=== PATIENT | male | born 1960 | race Caucasian/White ===

== ENCOUNTER 2017-03-22 10:33 | Emergency (ER) | payer OTHER ==
[~2017-03-22] VITALS: Ht 180.3 cm; Wt 93.0 kg
[~2017-03-22 10:33] MED LIST: ACULAR 0.5%5 ML OS; B-1100 MG PO; BYSTOLIC5 M1 PO; CENTRUM SILVER1 TA1 PO; CLARITHROMYCIN500 MG PO; DOXYCYCLINE HY100 MG PO; ERYTHROMYCIN5 MG/GM OPH; HYDROXYZINE HCL25 MG PO; LASIX20 M1 PO; NALTREXONE HCL50 M1; NAPROXEN500 M2 PO; NORCO 325 MG-51 TAB PO; PREDNISONE 20MG20 MG PO; SERTRALINE HCL50 MG; VIBRAMYCIN 100100 MG PO; VITAMIN D250000 UNIT PO
--- NOTE | 2017-03-22 10:53 | ED UPPER/LOWER EXTREMITY COMPL ---
History of Present Illness General Chief Complaint: Lower Extremity Problems Stated Complaint: R LEG NUMBNESS UNABLE TO MOVE TOES,WEAKNESS Source: patient Exam Limitations: no limitations Vital Signs & Intake/Output Vital Signs & Intake/Output ED Intake and Output 03/23 0000 03/22 1200 Intake Total Output Total 200 Balance -200 Output, Urine 200 Patient 205 lb Weight Weight Reported by Patient Measurement Method Allergies Coded Allergies: NO KNOWN ALLERGIES (04/02/16) Reconcile Medications Furosemide (Lasix) 20 MG TABLET 1 TAB PO DAILY edema Gabapentin 100 MG CAPSULE 1 CAP PO TID PRN neuropathy Hydrocodone/Acetaminophen (Hydrocodon-Acetaminoph 7.5-325) 7.5 MG-325 MG TABLET 1 TAB PO Q4 HRS NEEDED PRN PAIN (Reported) Naltrexone HCl (Unknown Strength) TABLET (Unknown Dose) UNKNOWN (Reported) Nebivolol HCl (Bystolic) 5 MG TABLET 1 TAB PO DAILY BP (Reported) Sertraline HCl (Unknown Strength) TABLET (Unknown Dose) UNKNOWN (Reported) Triage Nurses Notes Reviewed? yes Onset: Abrupt Duration: week(s): (34), constant, continues in ED, getting worse Timing: single episode today Severity: mild, moderate Severity Numbers: 6 Pain/Injury Location: Bilateral: Foot. No Modifying Factors: none Associated Symptoms: none HPI: 57-year-old male with a history of hypertension and alcohol abuse presents complaining of numbness and tingling in his bilateral lower extremities for the past 3 or 4 weeks. Patient reports symptoms started initially in the right foot with numbness weakness and tingling in all 5 toes. Symptoms gradually worsened and started in the left foot about 2 weeks ago. Patient does report associated low back pain as any trauma. He saw his primary care doctor for this who ordered blood work patient has not yet completed that. He is also currently seeing a physical therapist to work on his gait. Patient also has an MRI scheduled for April 11 but he feels as though he needs something done sooner. Patient takes hydrocodone for low back pain with improvement. Patient rates the numbness and tingling as a 7 out of 10 that is worse with any type of movement. Patient reports almost daily alcohol abuse. No other associated symptoms. No dysuria, knee pain, hip pain, abdominal pain, saddle paresthesia, bowel or bladder dysfunction, fever, chest pain, or shortness of breath. (JO CAMACHO PA-C) Past History Travel History Traveled to [place] past 21 day No Medical History Any Pertinent Medical History? see below for history Neurological: NONE EENT: NONE Cardiovascular: hypertension Respiratory: NONE Gastrointestinal: NONE Hepatic: NONE Renal: NONE Musculoskeletal: NONE Psychiatric: NONE Endocrine: NONE Blood Disorders: NONE Cancer(s): NONE Other Medical Hx: Psoriasis, alcoholism, hypertension Surgical History Surgical History: knee replacement (RIGHT) Psychosocial History What is your primary language Turkish Family History Hx Contributory? Yes (JO CAMACHO PA-C) Review of Systems Review of Systems Constitutional: Reports: no symptoms. EENTM: Reports: no symptoms. Respiratory: Reports: no symptoms. Cardiovascular: Reports: no symptoms. Gastrointestinal/Abdominal: Reports: no symptoms. Genitourinary: Reports: no symptoms. Musculoskeletal: Reports: see HPI, back pain, muscle stiffness (bilateral lower legs). Skin: Reports: no symptoms. Neurological/Psychological: Reports: see HPI, numbness (bilateral feet), tingling (bilateral feet). Hematologic/Endocrine: Reports: no symptoms. Immunological: Reports: no symptoms. All Other Systems: Reviewed and Negative (JO CAMACHO PA-C) Physical Exam Physical Exam General Appearance: well developed/nourished, no apparent distress, alert, awake , anxious Head: atraumatic, normal appearance Eyes: Bilateral: normal appearance, PERRL, EOMI. Ears, Nose, Throat: normal pharynx, normal ENT inspection, hearing grossly normal Neck: normal inspection, supple, full range of motion Cardiovascular/Respiratory: normal breath sounds, normal peripheral pulses, regular rate/rhythm, no respiratory distress Peripheral Pulses: 2+ tibialis posterior (R), 2+ tibialis posterior (L), 2+ dorsalis pedis (R), 2+ dorsalis pedis (L) Back: normal inspection, normal range of motion, no vertebral tenderness Shoulder Left: normal range of motion, normal inspection Shoulder Right: normal range of motion, normal inspection Elbow Left: normal range of motion, normal inspection Elbow Right: normal range of motion, normal inspection Hand Left: normal inspection, normal range of motion Hand Right: normal inspection, normal range of motion Leg Left: normal range of motion, normal inspection Leg Right: normal range of motion, normal inspection Hip Left: normal range of motion, normal inspection Hip Right: normal range of motion, normal inspection Knee Left: normal range of motion, normal inspection Knee Ligaments Left: pain anterior drawer, laxity anterior drawer Knee Right: normal range of motion, normal inspection Foot Left: normal inspection, normal range of motion Foot Right: normal inspection, normal range of motion Lower Extremity Reflexes: 2+: knee (R), knee (L). Neurologic/Tendon: normal sensation, normal motor functions, normal tendon functions, responds to pain, no evidence tendon injury, no pulse deficit Skin: intact, normal color, multiple erythematous patches with scaling skin located on nestor bilateral anterio lower extremities Lymphatic: no anterior cervical khai Comments: All sensation is intact in the bilateral lower extremities and feet. Motor function in the bilateral feet is intact. pt has an antalgic gait (BLACK PA-C,JO) Progress Differential Diagnosis: arterial insufficiency, fracture, sprain, tendon injury, lyme disease, vitamin b12 deficiency, lumbar stenosis, diabetic neuropathy, Plan of Care: Orders Procedure Date/time Status URINALYSIS 03/22 121 Complete MAGNESIUM 03/22 1211 Complete LYME TITRE 03/22 1211 Active COMPREHENSIVE METABOLIC PANEL 03/22 121 Complete CREATINE PHOSPHOKINASE 03/221 Complete CBC WITHOUT DIFFERENTIAL 03/22 1211 Complete VITAMIN B12 03/22 121 Complete Laboratory Tests 03/22/17 1234: Urine Color YEL, Urine Clarity CLEAR, Urine pH 6.0, Ur Specific [place] 1.025, Urine Protein NEG, Urine Ketones NEG, Urine Nitrite NEG, Urine Bilirubin NEG@ ICTO, Urine Urobilinogen 0.2, Ur Leukocyte Esterase NEG, Ur Microscopic EXAM NOT REQUIRED, Urine Hemoglobin NEG, Urine Glucose NEG 03/22/17 1219: Anion Gap 10, Estimated GFR > 60, BUN/Creatinine Ratio 10.0, Glucose 103 H, Calcium 9.8, Magnesium 1.7, Total Bilirubin 0.5, AST 28, ALT 41, Alkaline Phosphatase 72, Creatine Kinase 127, Total Protein 6.9, Albumin 4.3, Globulin 2.6, Albumin/Globulin Ratio 1.7, Vitamin B12 > 1000 H, CBC w Diff NO MAN DIFF REQ, RBC 4.07 L, MCV 98.5 H, MCH 33.1 H, RDW 14.6 H, MPV 7.3 L, Gran % 65.2 , Lymphocytes % 20.3 L, Monocytes % 8.0, Eosinophils % 6.1 H, Basophils % 0.4, Absolute Granulocytes 5.2, Absolute Lymphocytes 1.6, Absolute Monocytes 0.6, Absolute Eosinophils 0.5, Absolute Basophils 0, PUBS MCHC 33.6, Lyme Disease Antibody Pending 1208pm: No signs of cauda equina syndrome or peripheral vascular disease. Patient has an MRI of the lumbar spine scheduled for April 11. We will do some basic blood work. Pt will then follow up with his PCP to review results and MRI. 1:19 PM: CBC, CMP and UA are coming back within normal limits. Reviewed all results with patient. Advised him to follow-up with his primary care doctor to review the remaining results. Patient will be discharged home with gabapentin 100 mg 3 times a day to use as needed. Advised patient to stop drinking alcohol. all previous records reviewed.he is non-toxic appearing. Discussed plan with pt and he agrees. (JO CAMACHO PA-C) Departure Departure Disposition: HOME OR SELF CARE Condition: Stable Clinical Impression Primary Impression: Numbness and tingling of both feet Referrals: VICKY TONY,ARABELLA Rodriguez (PCP/Family) Additional Instructions: make a follow up appt to review all of todays results with your primary care doctor. gabapentin as directed. return to the emergency dept with any concerns. Departure Forms: Customer Survey General Discharge Information Prescriptions: Current Visit Scripts Gabapentin 1 CAP PO TID PRN neuropathy #30 CAP (JO CAMACHO PA-C) PA/PRESS ASSISTANT Co-Sign Statement Statement: ED Attending supervision documentation- [] I saw and evaluated the patient. I have also reviewed all the pertinent lab results and diagnostic results. I agree with the findings and the plan of care as documented in the PA's/PRESS ASSISTANT's documentation. [X] I have reviewed the ED Record and agree with the PA's/PRESS ASSISTANT's documentation. [] Additions or exceptions (if any) to the PAs/PRESS ASSISTANT's note and plan are summarized below: [] (AYSE TONY,OBED)
[2017-03-22] MEDS ORDERED: HYDROCODON-ACE1 EAC3 PO (11:32)
[2017-03-22 12:32] LABS: ABSOLUTE BASOPHIL COUNT 0 /CUMM (0.0-0.2); ABSOLUTE EOSINOPHIL COUNT 0.5 /CUMM (0.0-0.7); ABSOLUTE GRANULOCYTE CT 5.2 /CUMM (1.4-6.5); ABSOLUTE LYMPH COUNT 1.6 /CUMM (1.2-3.4); ABSOLUTE MONOCYTE COUNT 0.6 /CUMM (0.10-0.60); BASOPHIL % 0.4 % (0.0-2.0); EOSINOPHIL % 6.1 % (0-5); GRANULOCYTE % 65.2 % (42.2-75.2); HEMATOCRIT 40.1 % (42-52); MEAN CORPUSCULAR HGB 33.1 PG (27.0-31.0); MEAN CORPUSCULAR HGB CONC 33.6 G/DL (33.0-37.0); MEAN CORPUSCULAR VOLUME 98.5 FL (80.0-94.0); MEAN PLATELET VOLUME 7.3 FL (7.4-10.4); PLATELET COUNT 279 /CUMM (130-400); RBC DISTRIBUTION WIDTH 14.6 % (11.5-14.5); RED BLOOD CELL CT 4.07 /CUMM (4.70-6.10)
[2017-03-22 13:27] VITALS: BP 124/69
[2017-03-22] MEDS ORDERED: GABAPENTIN100 M2 PO (14:00)
== END 2017-03-22 14:32 ==
LOC: ERH 10:33
PROVIDERS: Physician Assistant Medical
DX: R20.0 Anesthesia of skin (principal); R53.1 Weakness
CPT/HCPCS: 86618; 81003

== ENCOUNTER 2017-04-17 14:11 | Observation (INO) | payer OTHER ==
[~2017-04-17] VITALS: Ht 177.8 cm; Wt 88.5 kg
[~2017-04-17 14:11] MED LIST changes: +ATIVAN1 M1 PO; +GABAPENTIN100 M2 PO; +HYDROCODON-ACE1 EAC3 PO
--- NOTE | 2017-04-17 14:14 | NUR ---
Per Dr. Menendez patient sent in by neuro surgeon for alcohol detox. Pt to have spinal surgery for an expanding spinal cyst and needs to be medically cleared and have alcohol detox.
--- NOTE | 2017-04-17 14:43 | NUR ---
PT TO ED FOR ADMISSION FOR BACK SURGERY, HAD BLOODWORK YESTERDAY, GIVEN ATIVAN FOR ETOH DETOX AND NICOTINE PATCH.
[2017-04-17] MEDS ORDERED: GABAPENTIN300 M2 PO (14:53)
--- NOTE | 2017-04-17 14:59 | ED GENERAL ADULT ---
History of Present Illness General Chief Complaint: General Adult Stated Complaint: SENT IN BY [facility] FOR EVAL AND ADMISSION Source: patient, old records Exam Limitations: no limitations Vital Signs & Intake/Output Vital Signs & Intake/Output Vital Signs Date Time Temp Pulse Resp B/P B/P Pulse O2 O2 Flow FiO2 Mean Ox Delivery Rate 04/17 1748 98.2 81 20 129/92 96 Room Air 04/17 1438 97.3 88 20 137/95 98 Room Air Room Air Allergies Coded Allergies: NO KNOWN ALLERGIES (04/02/16) Reconcile Medications Gabapentin 300 MG CAPSULE 1 CAP PO QPM NEUROPATHY (Reported) Hydrocodone/Acetaminophen (Hydrocodon-Acetaminoph 7.5-325) 7.5 MG-325 MG TABLET 1 TAB PO Q4 HRS NEEDED PRN PAIN (Reported) Lorazepam (Ativan) 1 MG TABLET 1 TAB PO TID PRN alcohol withdrawal symptoms ten...[id number] Nebivolol HCl (Bystolic) 5 MG TABLET 1 TAB PO QPM BP (Reported) Triage Note: PT TO ED FOR ADMISSION FOR BACK SURGERY, HAD BLOODWORK YESTERDAY, GIVEN ATIVAN FOR ETOH DETOX AND NICOTINE PATCH. Triage Nurses Notes Reviewed? 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 waters, alcohol abuse presents to ER for evaluation for admission for alcohol detox medical clearance prior to surgery. On arrival the patient was seen here last night. He states been taking Ativan which helps with shakes. He denies going through alcohol withdrawal in the past no history of seizures, he denies nausea vomiting chest pain shortness of breath. No fever no chills. The patient is an active smoker he denies any other drug use. No SI no HI. He states his primary care physician went away and his neurosurgeon septum to the hospital for medical clearance and alcohol detox prior to his surgery Past History Travel History Traveled to [place] past 21 day No Medical History Any Pertinent Medical History? see below for history Neurological: NONE EENT: NONE Cardiovascular: hypertension Respiratory: NONE Gastrointestinal: NONE Hepatic: NONE Renal: NONE Musculoskeletal: SPINAL STENOSIS Psychiatric: NONE Endocrine: NONE Blood Disorders: NONE Cancer(s): NONE Other Medical Hx: Psoriasis, alcoholism, hypertension Surgical History Surgical History: knee replacement (RIGHT) Psychosocial History What is your primary language Austrian Tobacco Use: Current Daily Use Daily Tobacco Use Amount/Type: => 5 Cigarettes daily ETOH Use: alcoholic Illicit Drug Use: denies illicit drug use Family History Hx Contributory? No Review of Systems Review of Systems Constitutional: Reports: see HPI. All Other Systems: Reviewed and Negative Comments Review of systems: See HPI, All other systems negative. Constitutional, no chills no fever, no malaise HEENT: No visual changes no sore throat no congestion, Cardiovascular: No chest pain , no palpitation , Skin: no rashes, no change in skin Respiratory: No dyspnea no cough gi: no nausea, no vomiting or diarrhea : No dysuria Muscle skeletal: No joint pain, back pain, no neck pain, Neurologic: no headache Psych: No stress Heme/endocrine: No bruising no bleeding Immunology: No lymphadenopathy Physical Exam Physical Exam General Appearance: well developed/nourished, no apparent distress, alert Comments: Well-developed well-nourished person in no acute distress HEENT: Normal EENT exam; PERRL, EOMI, HEAD is atraumatic. moist mucous membranes. Neck: Supple, no lymphadenopathy, normal range of motion Back: Nontender, no CVA tenderness. Full range of motion Cardiovascular: Regular rate and rhythms no murmurs r Respiratory: No respiratory distress. Patient speaking in full complete sentences. Breath sounds clear to auscultation bilaterally: NO W/R/R Abdomen: Soft, nontender nondistended, no appreciable organomegaly. Normal bowel sounds. No rebound/guarding,No ascites. Extremity: No edema, full range of motion of extremities, 5 out of 5 strength noted to bilateral upper and lower extremities Neuro: Alert oriented x3, motor sensory normal, There were no obvious focal neurologic abnormalities. Skin: No appreciable rash on exposed skin, skin is warm and dry. Psych: Mood and affect is normal, memory and judgment is normal. Core Measures ACS in differential dx? No CVA/TIA Diagnosis: No Severe Sepsis Present: No Septic Shock Present: No Progress Differential Diagnoses I considered the following diagnoses in my evaluation of the patient: [Alcohol withdrawal electrolyte abnormality dehydration exacerbation of chronic back pain , abscess Plan of Care: Orders Procedure Date/time Status CBC WITHOUT DIFFERENTIAL 04/18 0600 Active BASIC ELECTROLYTES PLUS BUN&CR 04/18 0600 Active Regular Diet 04/17 D Active Pathway - chart 04/17 1728 Active House Staff 04/17 1728 Active Patient Data 04/17 1728 Active Code Status 04/17 1728 Active Patient Data 04/[address] in observation 04/17 1714 Active Intake & Output 04/17 1602 Active Add-on Test (ER Only) 04/17 1524 Active URINALYSIS 04/17 1524 Complete EKG 04/17 1524 Active PARTIAL THROMBOPLASTIN TIME 04/17 1515 Complete PROTHROMBIN TIME 04/17 1515 Complete CIWA 04/17 1457 Active LIPASE 04/17 1457 Complete ETHANOL 04/17 1457 Complete COMPREHENSIVE METABOLIC PANEL 04/17 1457 Complete CBC WITHOUT DIFFERENTIAL 04/17 1457 Complete AMYLASE 04/17 1457 Complete VTE Mechanical Prophylaxis 04/17 UNK Active SOCIAL WORK CONSULT 04/17 UNK Active Current Medications Sig/Marj Start time Last Medication Dose Stop Time Status Admin Cyanocobalamin 1,000 MCG DAILY 04/18 1000 AC (Vitamin B12) Enoxaparin Sodium 40 MG DAILY 04/18 1000 AC (Lovenox) Lorazepam 1.5 MG Q6 04/17 1800 AC (Ativan) Acetaminophen 650 MG Q6P PRN 04/17 1730 AC (Tylenol) Folic Acid 1 MG DAILY 04/17 1730 AC (Folic Acid) Lorazepam 0 Q1P PRN 04/17 1730 AC (Ativan) Oxycodone HCl 5 MG Q6P PRN 04/17 1730 AC (Roxicodone) Oxycodone HCl 10 MG Q6P PRN 04/17 1730 AC (Roxicodone) Thiamine HCl 100 MG DAILY 04/17 1730 AC (Vitamin B1) Laboratory Tests 04/17/17 1755: Urine Color YEL, Urine Clarity CLEAR, Urine pH 6.5, Ur Specific [place] 1.020, Urine Protein NEG, Urine Ketones NEG, Urine Nitrite NEG, Urine Bilirubin NEG, Urine Urobilinogen 0.2, Ur Leukocyte Esterase NEG, Ur Microscopic EXAM NOT REQUIRED, Urine Hemoglobin NEG, Urine Glucose NEG 04/17/17 1515: Anion Gap 10, Estimated GFR > 60, BUN/Creatinine Ratio 21.4, Glucose 87, Calcium 10.5 H, Total Bilirubin 0.6, AST 28, ALT 37, Alkaline Phosphatase 70, Total Protein 7.2, Albumin 4.7, Globulin 2.5, Albumin/Globulin Ratio 1.9, Amylase 43, Lipase 124, PT 10.5, INR 1.00, APTT 30, CBC w Diff NO MAN DIFF REQ, RBC 4.17 L, MCV 99.0 H, MCH 33.4 H, RDW 13.2, MPV 7.8, Gran % 66.2, Lymphocytes % 21.3, Monocytes % 8.0, Eosinophils % 4.1, Basophils % 0.4, Absolute Granulocytes 6.3, Absolute Lymphocytes 2.0, Absolute Monocytes 0.8 H, Absolute Eosinophils 0.4, Absolute Basophils 0, PUBS MCHC 33.7, Serum Alcohol < 10.0 Labs ordered old records reviewed case discussed with Dr. Menendez who spoke with the patient's neurosurgeon Dr. waters-after discussing the case with case management the patient's last drink was greater than 48 hours ago, CIWA 0 patient resting in no apparent distress at this time. Preop workup which was requested by neurosurgery was obtained here in the ER patient will be placed in observation for further evaluation in the morning we'll continue to trend CIWA scores, PT consult neurosurgeon premature discharge would BE medically harmful case discussed with Dr. kelly will place in obs (ASHELY SANTORO,ANGELO) Diagnostic Imaging: Viewed by Me: Radiology Read. Discussed w/RAD: Radiology Read. Radiology Impression: PATIENT: CLAUDIA HSU PRESENT AGE: 57 PATIENT ACCOUNT NO: [id number] : 60 LOCATION: [facility] ORDERING PHYSICIAN: ANGELO SANTORO SERVICE DATE: 04/17/17 EXAM TYPE: RAD - XRY- PORTABLE CHEST XRAY EXAMINATION: CHEST 1 VIEW CLINICAL INFORMATION: Preop. COMPARISON: None. TECHNIQUE: An AP view of the chest is provided. FINDINGS: The cardiac silhouette is not enlarged. The mediastinal and hilar contours are unremarkable. There are neither pleural effusions nor pneumothoraces. There are no consolidations. The osseous structures are unremarkable. IMPRESSION: No evidence for acute disease. DICTATED BY: URBANO NÚÑEZ MD DATE/TIME DICTATED:1547 RN UNIT MANAGER:PAULA DATE/TIME TRANSCRIBED:04/17/171547 CONFIDENTIAL, DO NOT COPY WITHOUT APPROPRIATE AUTHORIZATION. <Electronically signed in Other Vendor System> SIGNED BY: URBANO NÚÑEZ MD 04/17/17 1553 Initial ED EKG: normal intervals, normal p-waves, normal QRS complex, normal sinus rhythm (70) Prior EKG: unchanged Departure Departure Time of Disposition: 1530 Disposition: STILL A PATIENT Condition: Stable Clinical Impression Primary Impression: Synovial cyst of lumbar spine Secondary Impressions: Alcohol withdrawal Referrals: VICKY TONY,ARABELLA Rodriguez (PCP/Family) Departure Forms: Customer Survey General Discharge Information Observation Note Spoke With: MARIN TONY,CRISTOBAL Physician Advisor Notified: ANTONIO TONY,CISCO [address] Patient In: Non-ED OBS Care Area Rationale for Observation: My rational for observation is as follows ciwa prototcol, trend labs, trend vital signs, treat accordingly given ciwa scores, pt consult, neurosurg eval Critical Care Note Critical Care Note Critical Care Time: non-applicable
--- NOTE | 2017-04-17 15:17 | NUR ---
BLOOD DRAWN AND SENT TO LAB-[facility].
--- NOTE | 2017-04-17 15:27 | NUR ---
RAD TO BEDSIDE FOR CHEST XRAY.
[2017-04-17 15:31] LABS: ABSOLUTE BASOPHIL COUNT 0 /CUMM (0.0-0.2); ABSOLUTE EOSINOPHIL COUNT 0.4 /CUMM (0.0-0.7); ABSOLUTE GRANULOCYTE CT 6.3 /CUMM (1.4-6.5); ABSOLUTE MONOCYTE COUNT 0.8 /CUMM (0.10-0.60); BASOPHIL % 0.4 % (0.0-2.0); EOSINOPHIL % 4.1 % (0-5); GRANULOCYTE % 66.2 % (42.2-75.2); HEMATOCRIT 41.2 % (42-52); MEAN CORPUSCULAR HGB 33.4 PG (27.0-31.0); MEAN CORPUSCULAR HGB CONC 33.7 G/DL (33.0-37.0); MEAN PLATELET VOLUME 7.8 FL (7.4-10.4); PLATELET COUNT 244 /CUMM (130-400); RBC DISTRIBUTION WIDTH 13.2 % (11.5-14.5); RED BLOOD CELL CT 4.17 /CUMM (4.70-6.10); WHITE BLOOD CELL COUNT 9.5 /CUMM (4.8-10.8)
[2017-04-17 15:42] LABS: PT 10.5 SEC (9.4-12.5); PTT 30 SEC (25-37)
--- NOTE | 2017-04-17 15:42 | NUR ---
DIETARY CALLED FOR TRAY
--- NOTE | 2017-04-17 15:53 | RADIOLOGY REPORT ---
EXAMINATION: CHEST 1 VIEW CLINICAL INFORMATION: Preop. COMPARISON: None. TECHNIQUE: An AP view of the chest is provided. FINDINGS: The cardiac silhouette is not enlarged. The mediastinal and hilar contours are unremarkable. There are neither pleural effusions nor pneumothoraces. There are no consolidations. The osseous structures are unremarkable. IMPRESSION: No evidence for acute disease.
--- NOTE | 2017-04-17 16:02 | NUR ---
PT GIVEN TRAY
--- NOTE | 2017-04-17 17:26 | History & Physical ---
DMITRY TONY,[facility] 04/17/17 4545: General Information and HPI MD Statement: I have seen and personally examined CLAUDIA HSU and documented this H&P. The patient is a 57 year old M who presented with a patient stated chief complaint of [Alcohol detox]. Source of Information: patient Exam Limitations: no limitations History of Present Illness: Patient is a 57-year-old man with a past medical history significant for alcohol abuse, history of hypertension, psoriasis with peripheral neuropathy was sent in to the ED by for spinal cyst surgery and alcohol detox. Patient was recently diagnosed with lumbar spinal cyst with spinal stenosis and has rescheduled for surgery on 04/20, he is being admitted to medical service due to significant alcohol abuse history. Patient brings 1 pint of rum mixed with cocacola every day has been alcohol detox programs twice last year,has been sobre for 3 month and started drinking again heavily this November. Denies any nausea, vomiting, abdominal discomfort, denies any tremors, hallucinations, suicidal or homicidal ideation, last drink was on Monday. Patient also requetsed to do a PSA, he thinks he should get 1 at this age. Reports some urinary frequency amd urgency. Allergies/Medications Allergies: Coded Allergies: NO KNOWN ALLERGIES (04/02/16) Home Med list Gabapentin 300 MG CAPSULE 1 CAP PO QPM NEUROPATHY (Reported) Hydrocodone/Acetaminophen (Hydrocodon-Acetaminoph 7.5-325) 7.5 MG-325 MG TABLET 1 TAB PO Q4 HRS NEEDED PRN PAIN (Reported) Lorazepam (Ativan) 1 MG TABLET 1 TAB PO TID PRN alcohol withdrawal symptoms ten...[id number] Nebivolol HCl (Bystolic) 5 MG TABLET 1 TAB PO QPM BP (Reported) Past History Travel History Traveled to [place] past 21 day No Medical History Neurological: NONE EENT: NONE Cardiovascular: hypertension Respiratory: NONE Gastrointestinal: NONE Hepatic: NONE Renal: NONE Musculoskeletal: SPINAL STENOSIS Psychiatric: NONE Endocrine: NONE Blood Disorders: NONE Cancer(s): NONE Other Medical Hx: Psoriasis, alcoholism, hypertension Surgical History Surgical History: knee replacement (RIGHT) Past Family/Social History Psychosocial History ETOH Use: alcoholic Illicit Drug Use: denies illicit drug use Review of Systems Review of Systems Constitutional: Denies: no symptoms. EENTM: Denies: no symptoms. Cardiovascular: Denies: no symptoms. Respiratory: Denies: no symptoms. GI: Denies: no symptoms. Genitourinary: Denies: frequency, urgency. Musculoskeletal: Denies: no symptoms. Skin: Reports: lesions. Neurological/Psychological: Denies: no symptoms. Hematologic/Endocrine: Denies: no symptoms. Exam & Diagnostic Data Last 24 Hrs of Vital Signs/I&O Vital Signs Date Time Temp Pulse Resp B/P B/P Pulse O2 O2 Flow FiO2 Mean Ox Delivery Rate 04/17 2046 98.7 79 18 140/98 91 04/17 1921 97.9 71 18 124/83 99 Room Air 04/17 1748 98.2 81 20 129/92 04/17 1748 98.2 81 20 129/92 96 Room Air 04/17 1438 97.3 88 20 137/95 98 Room Air Room Air Intake & Output 04/17 1600 04/17 0800 04/17 0000 Intake Total Output Total Balance Patient 195 lb Weight Weight Reported by Patient Measurement Method Physical Exam General Appearance Alert, Oriented X3, Cooperative, No Acute Distress Skin Psoriatic lesions on upeer extremities Sepsis Skin Exam (color): Normal for Ethnicity HEENT Atraumatic, PERRLA, EOMI, Mucous Membr. moist/pink Neck Supple, No JVD, No thryomegaly Cardiovascular Regular Rate, Normal S1, Normal S2, No Murmurs Lungs Clear to Auscultation, Normal Air Movement Abdomen Normal Bowel Sounds, Soft, No Tenderness, No Hepatospenomegaly, No Masses Neurological Normal Gait, Normal Speech, Strength at 5/5 X4 Ext, Normal Tone Extremities No Clubbing, No Cyanosis, No Edema, Normal Pulses Diagnostic Data CXR Results IMPRESSION: No evidence for acute disease. Other Results CT LUMB SPINE WO IV CONTRAST IMPRESSION: - At L4-L5, stable-appearing grade 1 degenerative anterolisthesis in the setting of severe bilateral hypertrophic facet arthropathy and a large dorsal midline synovial cyst better appreciated on the previous MRI result in stable appearing severe central canal stenosis. - At L5-S1, a 1 cm synovial cyst projecting anteriorly from the severely degenerative right facet joint into the right neural foramen resulting in mass effect on the right L5 foraminal nerve root segment is better demonstrated on the previous MRI study. - At L3-L4, multifactorial degenerative changes and dorsal epidural lipomatosis result in stable appearing moderate central canal stenosis. A 0.3 cm synovial cyst projecting medially from the right facet joint is better demonstrated on the previous MRI. Assessment/Plan Assessment: Patient is a 57-year-old man with a past medical history significant for alcohol abuse, history of hypertension, psoriasis with peripheral neuropathy was sent in to the ED by for spinal cyst surgery and alcohol detox. Alcohol detox * Start the patient on Ativan as per CIWA protocol(Ativan 1.5 mg every 6) * continue Zofran as needed for nausea and vomiting * Continue thiamine and folate and vitamin B12 * bed worker consult in the morning * Consider psych consult. * Watch for any withdrawal seizures. lumbar spinal cyst with spinal stenosis: * Has been scheduled for surgery on 04/20 * Preop EKG and chest x-ray are normal * Surgery will continue to follow up. History of hypertension,peripheral neuropathy, and Psoriasis * Continue home meds. History of smoking on nicotine patches * Continue to nicotine patches the hospital As Ranked By This Provider Problem List: 1. Alcoholism 2. Synovial cyst of lumbar spine 3. Alcohol withdrawal Core Measures/Miscellaneous Acute Coronary Syndrome ACS Diagnosis: No Cerebrovascular Accident CVA/TIA Diagnosis: No Congestive Heart Failure CHF Diagnosis: No VTE (View Protocol) VTE Risk Factors: No Risk Factors No [facility] prophylaxis d/t: No contraindications No VTE Pharm Prophylaxis d/t: No contraindications VTE Diagnosis: No VTE Type: NONE VTE Confirmed by (Test): NONE Sepsis (View Protocol) Severe Sepsis Present: No Septic Shock Septic Shock Present: No Miscellaneous Documentation Attending Case Discussed With: CRISTOBAL FUNES MD Primary Care Physician: ARABELLA PERRY MD Patient sees these Specialists None Level of Patient Care: General Medicine CRISTOBAL FUNES MD 04/17/174: Attending MD Review Statement Attending Statement Attending MD Statement: examined this patient, discuss w/resident/PA/SOLUTION MIXER, agreed w/resident/PA/SOLUTION MIXER, reviewed EMR data (avail) Attending Assessment/Plan: 57M PMH HTN, neuropathy with recently diagnosed lumbar spinal cyst with spinal stenosis, every day drinker, set for spinal surgery on 04/20, to be admitted for management of alcohol withdrawal and pre-operative management prior to surgery. Patient only complains of lower back pain. He drinks a pint of rum per day, last drink 36 hours ago. Patient is comfortable and not agitated, vitals stable , labs unremarkable. Plan -Observation in general medicine - Will follow neurosurgery recommendations - Pre-operative EKG and labs - Rapid Ativan taper - Ativan PRN CIWA - Monitor electrolytes - Continue home medications - DVT PPx PENG BRANTLEY 04/17/17 2008: Resident Review Statement Resident Statement: examined this patient, discussed with production internship Other Findings: Patient is a 57-year-old man with a past medical history significant for alcohol abuse, history of hypertension, psoriasis with peripheral neuropathy was sent in to the ED by for spinal cyst surgery and alcohol detox. Patient was recently diagnosed with lumbar spinal cyst with spinal stenosis and has rescheduled for surgery on 04/20, he is being admitted to medical service due to significant alcohol abuse history. Patient brings 1 pint of rum mixed with cocacola every day, He has been in alcohol detox programs twice last year, started drinking again heavily this November. Denies any nausea vomiting abdominal discomfort, denies any tremors denies any hallucinations any suicidal or homicidal ideation, last drink was on Monday. Vitals on admission were stable General Appearance: Alert, No Acute Distress Skin: Grossly normal HEENT: PEERLA Neck: Supple, No JVD Cardiovascular: Regular Rate, Normal S1, Normal S2, No Murmurs Lungs: Lungs clear to auscultation bilaterally Abdomen: No abdominal discomfort , bowel sounds present. Neurological: Normal Speech, Strength at 5/5 X4 Ext, Cranial Nerves 3-12 NL, Reflexes 2+ Extremities: No extremity edema Vascular: Normal Pulses. ,normal Pertinent laboratory before admission: Slight hyponatremia, H&H is stable coags normal Preop chest x-ray normal Preop EKG normal sinus rhythm Assessment and plan Alcohol detox lumbar spinal cyst with spinal stenosis History of hypertension History of peripheral neuropathy History of psoriasis History of smoking on nicotine patches Alcohol detox * Admit the patient to the [facility] floor * Start the patient on Ativan as per CIWA protocol. * Start the patient on scheduled Ativan 1.5 mg every 6. * continue Zofran as needed for nausea and vomiting * Continue thiamine and folate and vitamin B12 * bed worker consult in the morning * Consider psych consult. * Watch for any withdrawal seizures. lumbar spinal cyst with spinal stenosis * Vision has been scheduled for surgery on 04/20 * Preop EKG and chest x-ray are normal * Surgery will continue to follow up. History of hypertension Continue home dose of Bystolic History of peripheral neuropathy * Continue home dose of gabapentin History of smoking on nicotine patches * Continue to nicotine patches the hospital * Moderate to severe pain controll with pain control with oxycodone DVT prophylaxis with subcutaneous Lovenox patient is full code patient is full code
[2017-04-17 17:48] VITALS: BP 129/92
--- NOTE | 2017-04-17 18:46 | NUR ---
PT MEDICATED PER EMAR. NS INFUSING.
--- NOTE | 2017-04-17 18:54 | CT SCAN REPORT ---
CT LUMBAR SPINE WITHOUT CONTRAST CLINICAL INFORMATION: Preop for TLIF. COMPARISON: Lumbar spine MRI 03/23/2017. TECHNIQUE: Helical non-contrast CT images were obtained through the lumbar spine and 1.25 and 2.5 mm axial reconstructions were reviewed along with sagittal and coronal MPRs. FINDINGS: Stable-appearing grade 1 degenerative anterolisthesis of L4 on L5. Lumbar alignment is otherwise normal. The vertebral body heights are maintained. Mild disc space loss at L3-L4 and L4-L5 unchanged. No acute fractures and no acute subluxations. There is mild bilateral nonspecific perinephric stranding. There is aortoiliac atherosclerotic calcification. L1-L2 and L2-L3 disc contours are again noted to be normal. There is no central canal stenosis and there is no foraminal stenosis appreciated at these levels. L3-L4: Stable appearing diffuse annular disc bulge and moderate bilateral facet arthropathy. The small 0.3 cm synovial cyst projecting medially from the right facet joint is better demonstrated on the prior MRI. Dorsal epidural lipomatosis is again noted. Findings in concert result in moderate central canal stenosis that is likely unchanged. Mild foraminal narrowing bilaterally. L4-L5: Grade 1 degenerative anterolisthesis in the setting of severe bilateral hypertrophic facet arthropathy. The large dorsal midline synovial cyst is better demonstrated on the previous exam. Listhesis with uncovered disc and a synovial cyst result in severe central canal stenosis that appears unchanged. Mild foraminal narrowing bilaterally again noted. L5-S1: Slight diffuse annular disc bulge with severe right and mild left hypertrophic facet arthropathy again noted. 1 cm synovial cyst projecting anteriorly from the right facet joint into the right neural foramen resulting in mass effect on the right L5 foraminal nerve root segment better demonstrated on the previous MRI study. IMPRESSION: - At L4-L5, stable-appearing grade 1 degenerative anterolisthesis in the setting of severe bilateral hypertrophic facet arthropathy and a large dorsal midline synovial cyst better appreciated on the previous MRI result in stable appearing severe central canal stenosis. - At L5-S1, a 1 cm synovial cyst projecting anteriorly from the severely degenerative right facet joint into the right neural foramen resulting in mass effect on the right L5 foraminal nerve root segment is better demonstrated on the previous MRI study. - At L3-L4, multifactorial degenerative changes and dorsal epidural lipomatosis result in stable appearing moderate central canal stenosis. A 0.3 cm synovial cyst projecting medially from the right facet joint is better demonstrated on the previous MRI.
--- NOTE | 2017-04-17 19:01 | NUR ---
PT TO ROOM 216 BED 1
--- NOTE | 2017-04-17 19:51 | Admission Certification ---
See Addendum Admission Certification Certification Statement - As attending physician, I certify that at the time of - admission, based on clinical presentation, severity of - symptoms, need for further diagnostic testing and - therapeutic interventions, and risk of adverse outcomes - without in-hospital treatment, in my clinical assessment, - this patient requires an acute hospital stay for a minimum - of two nights or longer. I have also considered psychsocial - factors such as support system, advanced age, financial - issues, cognitive issues, and failed out-patient treatments, - past re-admission history, safety of patient, and lack of - compliance as applicable. Specific rationale supporting this admission is: Alcohol withdrawal with impending spinal cord surgery for spinal cyst
--- NOTE | 2017-04-17 20:18 | NUR ---
REPORT CALLED TO LORENE LAN AND TRANSPORT BOOKED.
--- NOTE | 2017-04-17 20:19 | Cons- Neurosurgical ---
SHY CONNELLY 04/17/17 2013: General Information and HPI Consulting Request Date of Consult: 04/17/17 Requested By: History of Present Illness: This 57 male with past medical history significant for htn, neuropathy with recently diagnosed lumbar spinal cyst and associated spinal stenosis, apparently high functioning every day alcoholic, with moderate foot drop, who currently needs admission for management of alcohol withdrawal and pre-operative assessment prior to surgery. The surgery is currently booked for 04/20 for L3-4, L4-5 TLIF. Patient only complains of lower back pain. He drinks a pint of rum per day, and reports his last drink was 36 hours ago. Patient is currently comfortable and not agitated, vitals stable, labs unremarkable. Allergies/Medications Allergies: Coded Allergies: NO KNOWN ALLERGIES (04/02/16) Home Med List: Gabapentin 300 MG CAPSULE 1 CAP PO QPM NEUROPATHY (Reported) Hydrocodone/Acetaminophen (Hydrocodon-Acetaminoph 7.5-325) 7.5 MG-325 MG TABLET 1 TAB PO Q4 HRS NEEDED PRN PAIN (Reported) Lorazepam (Ativan) 1 MG TABLET 1 TAB PO TID PRN alcohol withdrawal symptoms ten...[id number] Nebivolol HCl (Bystolic) 5 MG TABLET 1 TAB PO QPM BP (Reported) Past History Medical History Neurological: NONE EENT: NONE Cardiovascular: hypertension Respiratory: NONE Gastrointestinal: NONE Hepatic: NONE Renal: NONE Musculoskeletal: SPINAL STENOSIS Psychiatric: NONE Endocrine: NONE Blood Disorders: NONE Cancer(s): NONE Other Medical Hx: Psoriasis, alcoholism, hypertension Surgical History Pertinent Surgical History: knee replacement (RIGHT) Psychosocial History ETOH Use: alcoholic Illicit Drug Use: denies illicit drug use Assessment/Plan Assessment/Plan This 57 male with past medical history significant for htn, neuropathy with recently diagnosed lumbar spinal cysts and associated spinal stenosis, apparently high functioning every day alcoholic, with moderate foot drop, who currently needs admission for management of alcohol withdrawal and pre-operative assessment prior to surgery. The surgery is currently booked for 04/20 for L3-4, L4-5 TLIF. Patient only complains of lower back pain. He drinks a pint of rum per day, and reports his last drink was 36 hours ago. Patient is currently comfortable and not agitated, vitals stable, labs unremarkable. Management for alcohol withdrawal / detox prior to surgery pre-operative risk assessment for clearance recommend checking labs, ekg, u/a, cxr CT lumbar spine with reformatting (no contrast) to further assess L3-4, L4-5 discussed above with medical microbiologist will follow and d/w Consult Acknowledgment - Thank you for your consult request. YANCY PAREDES MD 04/19/172118: Exam & Diagnostic Data Vital Signs and I&O Intake & Output 04/19 0804/19 0000 04/18 1600 04/18 0804/18 0000 Intake Total 720 415 6374 Output Total 1000 Balance 850 -520 1780 Intake, IV 1000 Intake, Oral 850 480 780 Output, Urine 1000 Patient 88.451 kg Weight Assessment/Plan Consult Acknowledgment - Thank you for your consult request.
[2017-04-17 20:46] VITALS: BP 140/98
[2017-04-18 06:21] VITALS: BP 120/80
--- NOTE | 2017-04-18 07:19 | PN- Housestaff ---
See Addendum Subjective Follow-up For: Alcohol Detox Spinal Cyst removal Subjective: Patient was sitting comfortably in the bed eating breakfast. Denies any overnight events, nausea, vomiting, hallusinations, tremors or abdominal pain. Review of Systems Constitutional: Denies: no symptoms. EENTM: Denies: no symptoms. Cardiovascular: Denies: no symptoms. Respiratory: Denies: no symptoms. Gastrointestinal: Denies: no symptoms. Genitourinary: Denies: no symptoms. Musculoskeletal: Denies: no symptoms. Skin: Denies: no symptoms. Objective Last 24 Hrs of Vital Signs/I&O Vital Signs Date Time Temp Pulse Resp B/P B/P Pulse O2 O2 Flow FiO2 Mean Ox Delivery Rate 04/18 0621 97.4 75 18 120/80 93 Room Air 04/17 2224 79 148/90 04/17 2046 98.7 79 18 140/98 91 04/17 1921 97.9 71 18 124/83 99 Room Air 04/17 1748 98.2 81 20 129/92 04/17 1748 98.2 81 20 129/92 96 Room Air Intake & Output 04/18 1600 04/18 0800 04/18 0000 Intake Total 967 919 8406 Output Total 1000 Balance 850 -520 1780 Intake, IV 1000 Intake, Oral 850 480 780 Output, Urine 1000 Patient 195 lb Weight Physical Exam General Appearance: Alert, Oriented X3, Cooperative, No Acute Distress Other Physical Findings: Skin Psoriatic lesions on upeer extremities Sepsis Skin Exam (color): Normal for Ethnicity HEENT Atraumatic, PERRLA, EOMI, Mucous Membr. moist/pink Neck Supple, No JVD, No thryomegaly Cardiovascular Regular Rate, Normal S1, Normal S2, No Murmurs Lungs Clear to Auscultation, Normal Air Movement Abdomen Normal Bowel Sounds, Soft, No Tenderness, No Hepatospenomegaly, No Masses Neurological Normal Gait, Normal Speech, Strength at 5/5 X4 Ext, Normal Tone Extremities No Clubbing, No Cyanosis, No Edema, Normal Pulses Current Medications: Current Medications Sig/Marj Start time Last Medication Dose Route Stop Time Status Admin Acetaminophen 650 MG Q6P PRN 04/17 1730 DCD 04/18 PO 1054 Cyanocobalamin 1,000 MCG DAILY 04/18 1000 DCD 04/18 PO 1138 Enoxaparin Sodium 40 MG DAILY 04/18 1000 DCD 04/18 SC 1139 Fluocinonide 1 LEILANI Q6-PRN PRN 04/17 2030 DCD TOP Folic Acid 1 MG DAILY 04/17 1730 DCD 04/18 PO 1138 Gabapentin 300 MG QPM 04/17 2200 DCD 04/17 PO 2224 Heparin Sodium 5,000 UNIT Q8 04/17 2200 CAN (Porcine) SC Lorazepam 1 MG Q6 04/18 1200 CAN PO Lorazepam 1.5 MG Q6 04/18 0600 DC 04/18 PO 0528 Lorazepam 1 MG Q6 04/17 2359 CAN IV Lorazepam 1 MG Q6 04/17 2359 DC 04/17 PO 2324 Lorazepam 0 .STK-MED ONE 04/17 1804 DC .ROUTE Lorazepam 1.5 MG Q6 04/17 1800 DC 04/17 IV 1828 Lorazepam 0 Q1P PRN 04/17 1730 DCD IV Melatonin 5 MG ONCE ONE 04/18 0100 DC 04/18 PO 04/18 0101 0052 Nebivolol 5 MG QPM 04/17 2200 DCD 04/17 PO 2224 Nicotine 21 MG DAILY 04/18 1000 DCD 04/18 TOP 1138 Oxycodone HCl 5 MG Q6P PRN 04/17 1730 DCD PO Oxycodone HCl 10 MG Q6P PRN 04/17 1730 DCD 04/18 PO 1139 Patient Medication 1 ED .STK-MED ONE 04/18 1426 DC Teaching ED 04/18 1427 Sodium Chloride 1,000 ML Q10H 04/17 1845 DC 04/17 IV 1846 Thiamine HCl 100 MG DAILY 04/17 1730 DCD 04/18 PO 1138 Trimethobenzamide HCl 200 MG TID PRN 04/17 1845 DC IM Last 24 Hrs of Lab/Tre Results Last 24 Hrs of Labs/Mics: Laboratory Tests 04/18/17 0715: Anion Gap 10, Estimated GFR > 60, BUN/Creatinine Ratio 15.7, CBC w Diff NO MAN DIFF REQ, RBC 3.90 L, MCV 99.7 H, MCH 33.8 H, RDW 13.4, MPV 7.8, Gran % 58.5, Lymphocytes % 28.1, Monocytes % 7.6, Eosinophils % 5.1 H, Basophils % 0.7, Absolute Granulocytes 4.5, Absolute Lymphocytes 2.2, Absolute Monocytes 0.6, Absolute Eosinophils 0.4, Absolute Basophils 0.1, PUBS MCHC 33.9 04/17/17 1755: Urine Color YEL, Urine Clarity CLEAR, Urine pH 6.5, Ur Specific Flushing 1.020, Urine Protein NEG, Urine Ketones NEG, Urine Nitrite NEG, Urine Bilirubin NEG, Urine Urobilinogen 0.2, Ur Leukocyte Esterase NEG, Ur Microscopic EXAM NOT REQUIRED, Urine Hemoglobin NEG, Urine Glucose NEG Assessment/Plan Assessment: Patient is a 57-year-old man with a past medical history significant for alcohol abuse, history of hypertension, psoriasis with peripheral neuropathy was sent in to the ED by for spinal cyst surgery and alcohol detox. Alcohol detox: * Patient on Ativan as per [facility] protocol. * Start the patient on scheduled Ativan 1.5 mg every 6. * continue Zofran as needed for nausea and vomiting * Continue thiamine and folate and vitamin B12 * asbestos hazard abatement worker consult in the morning * Consider psych consult. * Watch for any withdrawal seizures. lumbar spinal cyst with spinal stenosis * Has been scheduled for surgery on 04/20 * Preop EKG and chest x-ray are normal * Surgery will continue to follow up. * Pt will be obtaining MRI cervical in light of clinical findings of hyperreflexia to rule out a concurrent cervical stenosis as outpt. History of hypertension * Continue home dose of Bystolic History of peripheral neuropathy * Continue home dose of gabapentin History of Psoriasis * Uses triamcinolone cream at home. History of smoking on nicotine patches * Continue to nicotine patches the hospital Problem List: 1. Alcohol withdrawal 2. Spinal cord cysts 3. Spinal stenosis at L4-L5 level Pain Ratin Pain Location: None Pain Goal: Remain pain free Pain Plan: Pain Pathway Tomorrow's Labs & Rationales: None
[2017-04-18 08:40] LABS: ABSOLUTE BASOPHIL COUNT 0.1 /CUMM (0.0-0.2); ABSOLUTE EOSINOPHIL COUNT 0.4 /CUMM (0.0-0.7); ABSOLUTE GRANULOCYTE CT 4.5 /CUMM (1.4-6.5); ABSOLUTE LYMPH COUNT 2.2 /CUMM (1.2-3.4); ABSOLUTE MONOCYTE COUNT 0.6 /CUMM (0.10-0.60); BASOPHIL % 0.7 % (0.0-2.0); EOSINOPHIL % 5.1 % (0-5); GRANULOCYTE % 58.5 % (42.2-75.2); HEMATOCRIT 38.9 % (42-52); MEAN CORPUSCULAR HGB 33.8 PG (27.0-31.0); MEAN CORPUSCULAR HGB CONC 33.9 G/DL (33.0-37.0); MEAN CORPUSCULAR VOLUME 99.7 FL (80.0-94.0); MEAN PLATELET VOLUME 7.8 FL (7.4-10.4); PLATELET COUNT 208 /CUMM (130-400); RBC DISTRIBUTION WIDTH 13.4 % (11.5-14.5); WHITE BLOOD CELL COUNT 7.7 /CUMM (4.8-10.8)
--- NOTE | 2017-04-18 11:23 | Patient Discharge Instructions ---
Discharge Instructions General Discharge Information You were seen/treated for: Alcohol Detox Special Instructions: Please follow up with Dr. Correa on 04/20/2017. Diet Continue normal diet: Yes ((Avoid Alcohol)) Activity Full Activity/No Limits: Yes (As tolerated) Acute Coronary Syndrome Inclusion Criteria At DC or during hospital stay patient has or had the following: ACS DIAGNOSIS No Discharge Core Measures Meds if any: Prescribed or Continued at Discharge Meds if any: NOT Prescribed or Continued at Discharge Congestive Heart Failure Inclusion Criteria At DC or during hospital stay patient has or had the following: CHF DIAGNOSIS No Discharge Core Measures Meds if any: Prescribed or Continued at Discharge Meds if any: NOT Prescribed or Continued at Discharge Cerebrovascular accident Inclusion Criteria At DC or during hospital stay patient has or had the following: CVA/TIA Diagnosis No Discharge Core Measures Meds if any: Prescribed or Continued at Discharge Meds if any: NOT Prescribed or Continued at Discharge Venous thromboembolism Inclusion Criteria VTE Diagnosis No VTE Type NONE VTE Confirmed by (Test) NONE Discharge Core Measures - Per Current guidelines, there needs to be overlap - treatment for the first 5 days of Warfarin therapy. - If discharged on Warfarin prior to 5 days of - overlap therapy, the patient will need to be - assessed for post discharge needs including - *Post discharge parental anticoagulation - *Warfarin and/or parental anticoagulation education - *Follow up date to check INR post discharge At least 5 days overlap therapy as Inpatient No Meds if any: Prescribed or Continued at Discharge Note: Overlap Therapy is Warfarin and Anticoagulant Meds if any: NOT Prescribed or Continued at Discharge
--- NOTE | 2017-04-18 11:28 | Discharge Summary ---
Visit Information Visit Dates Admission Date: 04/17/17 Discharge Date: 04/18/17 Hospital Course Course Attending Physician: CRISTOBAL FUNES MD Primary Care Physician: VICKY TONY,ARABELLA Rodriguez Hospital Course: Patient is a 57-year-old man with a past medical history significant for alcohol abuse, history of hypertension, psoriasis with peripheral neuropathy was sent in to the ED by for spinal cyst surgery and alcohol detox. Patient was recently diagnosed with lumbar spinal cyst with spinal stenosis and has rescheduled for surgery on 04/20, he is being admitted to medical service due to significant alcohol abuse history. Patient brings 1 pint of rum mixed with cocacola every day, He has been in alcohol detox programs twice last year, started drinking again heavily this November. Denies any nausea vomiting abdominal discomfort, denies any tremors denies any hallucinations any suicidal or homicidal ideation, last drink was on Monday. Vitals on admission were stable Pertinent laboratory before admission:Slight hyponatremia, H&H is stable coags normal Preop chest x-ray normal Preop EKG normal sinus rhythm CT LUMBAR SPINE WITHOUT CONTRAST IMPRESSION: - At L4-L5, stable-appearing grade 1 degenerative anterolisthesis in the setting of severe bilateral hypertrophic facet arthropathy and a large dorsal midline synovial cyst better appreciated on the previous MRI result in stable appearing severe central canal stenosis. - At L5-S1, a 1 cm synovial cyst projecting anteriorly from the severely degenerative right facet joint into the right neural foramen resulting in mass effect on the right L5 foraminal nerve root segment is better demonstrated on the previous MRI study. - At L3-L4, multifactorial degenerative changes and dorsal epidural lipomatosis result in stable appearing moderate central canal stenosis. A 0.3 cm synovial cyst projecting medially from the right facet joint is better demonstrated on the previous MRI. Patient was admitted to general medicine floor and treated for following problems Problem List Alcohol detox lumbar spinal cyst with spinal stenosis History of hypertension History of peripheral neuropathy History of psoriasis History of smoking on nicotine patches Alcohol detox: * Patient was started on Ativan as per CIWA protocol (Ativan 1.5 mg every 6). Patient did not have any withdrawl symptoms and his CIWA scores were mostly in zeros so ativan was discontinued. Patient was dischrged home with instructions to follow up with Dr. Correa on (04/20/2017) for surgery. lumbar spinal cyst with spinal stenosis * Has been scheduled for surgery on 04/20. * Preop EKG and chest x-ray were normal. * Pt will be obtaining MRI cervical in light of clinical findings of hyperreflexia to rule out a concurrent cervical stenosis as outpt. History of hypertension * Home dose of Bystolic continued. History of peripheral neuropathy * Home dose of gabapentin continued. History of Psoriasis * Uses triamcinolone cream at home. History of smoking on nicotine patches * Continue nicotine patches. Allergies: Coded Allergies: NO KNOWN ALLERGIES (04/02/16) Disposition Summary Disposition Principal Diagnosis: Alcohol Detox Additional Diagnosis: Spinal Cyst Hypertension Psoriasis Discharge Disposition: home or self care Discharge Instructions General Discharge Information Code Status: Full Code Patient's Diet: Regular Diet Patient's Activity: As tolerated Follow-Up Instructions/Appts: Please follow up with Dr. Correa on 04/20/2017. Medications at Discharge Discharge Medications: Continue taking these medications: Nebivolol HCl (Bystolic) 5 MG TABLET 1 Tablet ORAL Every night Qty = 90 Comments: Last Taken: 04/17/17 Time: 0930 PM Hydrocodone/Acetaminophen (Hydrocodon-Acetaminoph 7.5-325) 7.5 MG-325 MG TABLET 1 Tablet ORAL EVERY 4 HOURS NEEDED as needed for PAIN Qty = 105 Lorazepam (Ativan) 1 MG TABLET 1 Tablet ORAL THREE TIMES DAILY as needed for alcohol withdrawal symptoms Qty = 10 Instructions: ten...[id number] Gabapentin (Gabapentin) 300 MG CAPSULE 1 Capsule ORAL Every night Qty = 30 Comments: Last Taken: 04/17/17 Time: 930 PM Copies To: YANCY CORREA MD; VICKY TONY,ARABELLA Rodriguez Attending MD Review Statement Documenting Attending: CRISTOBAL FUNES MD
--- NOTE | 2017-04-18 14:47 | Cons- Neurosurgical ---
General Information and HPI Consulting Request Date of Consult: 04/18/17 Requested By: CRISTOBAL FUNES MD Reason for Consult: lumbar stenosis with instability, gait disturbance Source of Information: patient Exam Limitations: no limitations History of Present Illness: Pt 57yo male with progressive bilat LE numbness and weakness and gait instability seen as outpt in office and noted to have severe left more than right LE weakness, mod severe L foot drop and diffuse sensory loss in LE along with diffuse hyperreflexia. His lumbar imaging is c/w advanced facet arthrosis with multilevel compressive medial synovial cysts L3/4, L4/5, L5/S1 and grade 1 L4/5 spondylolisthesis c/w degenerative instability. Pt requires surgery given high grade stenosis with progressive neurologic decline and foot drop but is noted to be every day drinker and has been admitted for detox under observation, as well as to facilitate medical preop clearance and presurgical imaging with CT scan. Allergies/Medications Allergies: Coded Allergies: NO KNOWN ALLERGIES (04/02/16) Home Med List: Gabapentin 300 MG CAPSULE 1 CAP PO QPM NEUROPATHY (Reported) Hydrocodone/Acetaminophen (Hydrocodon-Acetaminoph 7.5-325) 7.5 MG-325 MG TABLET 1 TAB PO Q4 HRS NEEDED PRN PAIN (Reported) Lorazepam (Ativan) 1 MG TABLET 1 TAB PO TID PRN alcohol withdrawal symptoms ten...[id number] Nebivolol HCl (Bystolic) 5 MG TABLET 1 TAB PO QPM BP (Reported) Current Medications: Current Medications Sig/Marj Start time Last Medication Dose Route Stop Time Status Admin Acetaminophen 650 MG Q6P PRN 04/17 1730 DCD 04/18 PO 1054 Cyanocobalamin 1,000 MCG DAILY 04/18 1000 DCD 04/18 PO 1138 Enoxaparin Sodium 40 MG DAILY 04/18 1000 DCD 04/18 SC 1139 Fluocinonide 1 LEILANI Q6-PRN PRN 04/17 2030 DCD TOP Folic Acid 1 MG DAILY 04/17 1730 DCD 04/18 PO 1138 Gabapentin 300 MG QPM 04/17 2200 DCD 04/17 PO 2224 Heparin Sodium 5,000 UNIT Q8 04/17 2200 CAN (Porcine) SC Lorazepam 1 MG Q6 04/18 1200 CAN PO Lorazepam 1.5 MG Q6 04/18 0600 DC 04/18 PO 0528 Lorazepam 1 MG Q6 04/17 2359 CAN IV Lorazepam 1 MG Q6 04/17 2359 DC 04/17 PO 2324 Lorazepam 0 .STK-MED ONE 04/17 1804 DC .ROUTE Lorazepam 1.5 MG Q6 04/17 1800 DC 04/17 IV 1828 Lorazepam 0 Q1P PRN 04/17 1730 DCD IV Melatonin 5 MG ONCE ONE 04/18 0100 DC 04/18 PO 04/18 0101 0052 Nebivolol 5 MG QPM 04/17 2200 DCD 04/17 PO 2224 Nicotine 21 MG DAILY 04/18 1000 DCD 04/18 TOP 1138 Oxycodone HCl 5 MG Q6P PRN 04/17 1730 DCD PO Oxycodone HCl 10 MG Q6P PRN 04/17 1730 DCD 04/18 PO 1139 Patient Medication 1 ED .STK-MED ONE 04/18 1426 DC Teaching ED 04/18 1427 Sodium Chloride 1,000 ML Q10H 04/17 1845 DC 04/17 IV 1846 Thiamine HCl 100 MG DAILY 04/17 1730 DCD 04/18 PO 1138 Trimethobenzamide HCl 200 MG TID PRN 04/17 1845 DC IM Past History Medical History Blood Transfusion Hx: No Neurological: NONE EENT: NONE Cardiovascular: hypertension Respiratory: NONE Gastrointestinal: NONE Hepatic: NONE Renal: NONE Musculoskeletal: SPINAL STENOSIS Psychiatric: NONE Endocrine: NONE Blood Disorders: NONE Cancer(s): NONE Other Medical Hx: Psoriasis, alcoholism, hypertension Surgical History Pertinent Surgical History: knee replacement (RIGHT) Psychosocial History Smoking Status: Current Everyday Smoker ETOH Use: alcoholic Illicit Drug Use: denies illicit drug use Review of Systems Review of Systems: etoh use, smoking Exam & Diagnostic Data Vital Signs and I&O Vital Signs Date Time Temp Pulse Resp B/P B/P Pulse O2 O2 Flow FiO2 Mean Ox Delivery Rate 04/18 06 97.4 75 18 120/80 93 Room Air 04/17 2224 79 148/90 04/17 2046 98.7 79 18 140/98 91 04/17 1921 97.9 71 18 124/83 99 Room Air 04/17 174 98.2 81 20 129/92 04/17 174 98.2 81 20 129/92 96 Room Air Intake & Output 04/18 1600 04/18 0800 04/18 0000 04/17 1600 04/17 0800 04/17 0000 Intake Total 546 783 2274 Output Total 1000 Balance 850 -520 1780 Intake, IV 1000 Intake, Oral 850 480 780 Output, Urine 1000 Patient 88.451 kg 88.451 kg Weight Weight Reported by Patient Measurement Method Physical Exam: awake and alert, appropriate neuro exam with 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 sensory with bilat sensory loss chioma below knees, left more than right ambulates independently but dragging left leg, steppage voiding on own Last 24 Hours of Labs: Laboratory Tests 04/18 04/17 0715 1755 Chemistry Sodium (137 - 145 mmol/L) 135 L Potassium (3.5 - 5.1 mmol/L) 4.3 Chloride (98 - 107 mmol/L) 98 Carbon Dioxide (22 - 30 mmol/L) 27 Anion Gap (5 - 16) 10 BUN (9 - 20 mg/dL) 11 Creatinine (0.7 - 1.2 mg/dL) 0.7 Estimated GFR (>60 ml/min) > 60 BUN/Creatinine Ratio (7 - 25 %) 15.7 Hematology CBC w Diff NO MAN DIFF REQ WBC (4.8 - 10.8 /CUMM) 7.7 RBC (4.70 - 6.10 /CUMM) 3.90 L Hgb (14.0 - 18.0 G/DL) 13.2 L Hct (42 - 52 %) 38.9 L MCV (80.0 - 94.0 FL) 99.7 H MCH (27.0 - 31.0 PG) 33.8 H RDW (11.5 - 14.5 %) 13.4 Plt Count (130 - 400 /CUMM) 208 MPV (7.4 - 10.4 FL) 7.8 Gran % (42.2 - 75.2 %) 58.5 Lymphocytes % (20.5 - 51.1 %) 28.1 Monocytes % (1.7 - 9.3 %) 7.6 Eosinophils % (0 - 5 %) 5.1 H Basophils % (0.0 - 2.0 %) 0.7 Absolute Granulocytes (1.4 - 6.5 /CUMM) 4.5 Absolute Lymphocytes (1.2 - 3.4 /CUMM) 2.2 Absolute Monocytes (0.10 - 0.60 /CUMM) 0.6 Absolute Eosinophils (0.0 - 0.7 /CUMM) 0.4 Absolute Basophils (0.0 - 0.2 /CUMM) 0.1 PUBS MCHC (33.0 - 37.0 G/DL) 33.9 Urines Urine Color (YEL,AMB,STR) YEL Urine Clarity (CLEAR) CLEAR Urine pH (5.0 - 8.0) 6.5 Ur Specific [place] (1.001 - 1.035) 1.020 Urine Protein (NEG,<30 MG/DL) NEG Urine Ketones (NEG) NEG Urine Nitrite (NEG) NEG Urine Bilirubin (NEG) NEG Urine Urobilinogen (0.1 - 1.0 EU/dl) 0.2 Ur Leukocyte Esterase (NEG) NEG Ur Microscopic EXAM NOT REQUIRED Urine Hemoglobin (NEG) NEG Urine Glucose (N MG/DL) NEG 04/17 1515 Chemistry Sodium (137 - 145 mmol/L) 134 L Potassium (3.5 - 5.1 mmol/L) 4.4 Chloride (98 - 107 mmol/L) 96 L Carbon Dioxide (22 - 30 mmol/L) 29 Anion Gap (5 - 16) 10 BUN (9 - 20 mg/dL) 15 Creatinine (0.7 - 1.2 mg/dL) 0.7 Estimated GFR (>60 ml/min) > 60 BUN/Creatinine Ratio (7 - 25 %) 21.4 Glucose (65 - 99 mg/dL) 87 Calcium (8.4 - 10.2 mg/dL) 10.5 H Total Bilirubin (0.2 - 1.3 mg/dL) 0.6 AST (17 - 59 U/L) 28 ALT (21 - 72 U/L) 37 Alkaline Phosphatase (< 127 U/L) 70 Total Protein (6.3 - 8.2 g/dL) 7.2 Albumin (3.5 - 5.0 g/dL) 4.7 Globulin (1.9 - 4.2 gm/dL) 2.5 Albumin/Globulin Ratio (1.1 - 2.2 %) 1.9 Amylase (30 - 110 U/L) 43 Lipase (23 - 300 U/L) 124 Coagulation PT (9.4 - 12.5 SEC) 10.5 INR (0.90 - 1.17) 1.00 APTT (25 - 37 SEC) 30 Hematology CBC w Diff NO MAN DIFF REQ WBC (4.8 - 10.8 /CUMM) 9.5 RBC (4.70 - 6.10 /CUMM) 4.17 L Hgb (14.0 - 18.0 G/DL) 13.9 L Hct (42 - 52 %) 41.2 L MCV (80.0 - 94.0 FL) 99.0 H MCH (27.0 - 31.0 PG) 33.4 H RDW (11.5 - 14.5 %) 13.2 Plt Count (130 - 400 /CUMM) 244 MPV (7.4 - 10.4 FL) 7.8 Gran % (42.2 - 75.2 %) 66.2 Lymphocytes % (20.5 - 51.1 %) 21.3 Monocytes % (1.7 - 9.3 %) 8.0 Eosinophils % (0 - 5 %) 4.1 Basophils % (0.0 - 2.0 %) 0.4 Absolute Granulocytes (1.4 - 6.5 /CUMM) 6.3 Absolute Lymphocytes (1.2 - 3.4 /CUMM) 2.0 Absolute Monocytes (0.10 - 0.60 /CUMM) 0.8 H Absolute Eosinophils (0.0 - 0.7 /CUMM) 0.4 Absolute Basophils (0.0 - 0.2 /CUMM) 0 PUBS MCHC (33.0 - 37.0 G/DL) 33.7 Toxicology Serum Alcohol (<10 MG/DL) < 10.0 Imaging Results: Lumbar CT: At L4-L5, stable-appearing grade 1 degenerative anterolisthesis in the setting of severe bilateral hypertrophic facet arthropathy and a large dorsal midline synovial cyst better appreciated on the previous MRI result in stable appearing severe central canal stenosis. - At L5-S1, a 1 cm synovial cyst projecting anteriorly from the severely degenerative right facet joint into the right neural foramen resulting in mass effect on the right L5 foraminal nerve root segment is better demonstrated on the previous MRI study. - At L3-L4, multifactorial degenerative changes and dorsal epidural lipomatosis result in stable appearing moderate central canal stenosis. A 0.3 cm synovial cyst projecting medially from the right facet joint is better demonstrated on the previous MRI. Assessment/Plan Assessment/Plan Pt 57yo with progessive LE weakness and gait disturbance and high grade stenosis and compression of cauda equina in pt with heavy etoh use now abstinent and on ativan prophylactically. Review of imaging identifies three level facet arthorosis with compressive syovial cysts, worst at L4/5 where he also has instability. I discussed the imaging with Mr. Lee at length and the role of surgery, currently planned for . At a minimum, he will need decompression at L3/ 4, L4/5 with fusion to resect the cysts, decompress lumbar roots and stabilize the instability. At L5/S1 he has advanced right more than left facet dz with a far lateral right synovial cyst compressing the exiting L5 root. We discussed that it may be possible to resect the cyst from a far lateral approach but if technically limited, will need to encorporate L5/S1 into the fusion and completely resect the right facet joint to decompress the root. All risks, benefits and alternatives have been discussed with Mr. Lee at length and all questions have been answered. He wishes to proceed. He understands the risks of surgery to include, but not limited to, bleeding, infection, temporary or permanent neurologic deficit, CSF leak, failure of fusion, failure of hardware, general medical risks - OK, pneumonia, DVT, PE etc, adjacent segment dz, failure to alleviate his symptoms, blindness, coma, , need for additional surgery. We discussed the negative impact of nicotine use on the healing of the fusion and ideally, he would be completely abstinent from smoking. In this case, given the substantial neurologic deficits which have progressed, we will plan to proceed on . Consent forms were reviewed and signed. Pt will be obtaining MRI cervical in light of clinical findings of hyperreflexia to rule out a concurrent cervical stenosis as outpt. Consult Acknowledgment - Thank you for your consult request.
--- NOTE | 2017-04-18 15:29 | NUR ---
Late Entry: Aware of patients discharge earlier this afternoon. Patient had been placed in observation status last evening for ETOH Detox. Patient scheduled for neurosurgery on , 04/20/17 and is an everyday drinker. Patient was discharged prior to being seen by social work; medical record reflects patient being discharged home with an ativan taper.
== END 2017-04-18 14:30 ==
LOC: ERH 14:11 → ERHI 17:14 → 2NB 17:14 → ENRESERV 18:54 → ENTRNSPT 20:19 → EDTRNSPTSTS 20:23 → 2NB 20:32 → CMPTRNSPT 20:50 → 2NB 04-18 14:30
PROVIDERS: Physician Assistant Medical; Student in an Organized Health Care Education/Training Program; ADMIT Internal Medicine
DX: F10.239 Alcohol dependence with withdrawal, unspecified (principal); I10 Essential (primary) hypertension; L40.9 Psoriasis, unspecified; G62.9 Polyneuropathy, unspecified; M48.06 Spinal stenosis, lumbar region; F17.200 Nicotine dependence, unspecified, uncomplicated; M71.38 Other bursal cyst, other site
CPT/HCPCS: 6040; 36415; 81003; 82436; 93005; 93010; 96372; 96374; G0378; G0480; J1644; J1650; J3250; J3490

== ENCOUNTER 2017-04-20 01:50 | Inpatient (IN) | payer OTHER ==
[~2017-04-20] VITALS: Ht 177.8 cm; Wt 90.7 kg
[~2017-04-20 01:50] MED LIST changes: +GABAPENTIN300 M2 PO
--- NOTE | 2017-04-20 11:35 | Operative Report ---
Operative/Inv Procedure Report Surgery Date: 04/20/17 Name of Procedure: 1. L3 4 laminectomy for resection of synovial cyst 2. L4 5 laminectomy for resection of synovial cyst 3. L5-S1 laminectomy for resection of synovial cyst 4. Bilateral L3 4 osteotomy. Bilateral L4 5 osteotomy. Bilateral L5-S1 osteotomy. 5. L 34 TLIF, L4 5 TLIF, L5-S1 TLIF with Insertion of L3 4 10 x 26 mm interbody cage titanium. Insertion of L4 5 10 x 26 mm interbody cage titanium. Insertion of L5-S1 12 x 26 mm interbody cage. 6. L3-L4 L5-S1 posterior lateral arthrodesis utilizing autologous bone, graft iliac crest graft aspirate, and a master graft. 7. L3-L4 L5-S1 posterior lateral segmental instrumentation with Synthes Expedium instrumentation 8. O-arm stereotactic guidance Pre-Operative Diagnosis: 1. L3/4, L4/5, L5/S1 syovial cysts 2. L3 4, L4 5, L5-S1 stenosis, spondylosis 3. L4 5 spondylolisthesis 4. Bilateral foot drop Post-Operative Diagnosis: Same Estimated Blood Loss: 1300cc Surgeon/Travel Rn Or: LENA TONY,Milton Deluca MD Anesthesia: general endotracheal tube Monitors: Neurophysiologic monitoring IV Fluids: 4800cc crystalloid, 640 mL Cell Saver Implants: Synthes Urine Output: 1100cc via Yost Drains: Medium Hemovac Specimens: L3 4, L4 5, L5-S1 Synovial cysts, L3 4, L4 5 L5-S1 disc material Complications: None Condition: Stable Operative Indication: Patient is a 57-year-old gentleman who presents with progressive bilateral lower extremity weakness and paresthesias, left greater than right. Exam notable for diffuse weakness. Clean the left leg with a moderately severe foot drop. Imaging identifies a high-grade L4 5 stenosis secondary to a degenerative grade 1 spondylolisthesis, hypertrophic facet changes and a large dorsal epidural cyst. At L3 4 he is noted to have a synovial cyst projecting medially off the right facet with the neural impingement and stenosis secondary to hypertrophic facet changes and the cyst. At L5-S1 he is noted to have advanced right facet arthrosis and a far lateral right synovial cyst which abuts the right L5 root. In light of his progressive neurologic symptoms, he presents for surgical decompression and instrument fusion. Operative/Procedure Note Note: Patient was taken the operating room. After appropriate patient identification, neurophysiologic monitoring leads were placed and baseline recordings were obtained. The patient then underwent the smooth induction of general endotracheal anesthesia without incident. Following intubation monitoring was stable. A Yost catheter was sterilely inserted. DVT prophylaxis was utilized throughout the case. Patient was given 2 g of IV kefzol in Preoperative Prophylaxis. With All Tubes and Lines Secured, the Patient Was Carefully Turned to the Prone Position on the Ede Frame Taking Care to Ensure That All Pressure Points Were Well-Padded. Monitoring Was Stable Following the Turn.The Low Back Was Widely Prepped and Draped Usual Sterile Fashion Using [place] Iodine Solution. A small gauge spinal needle was placed in the midline superficially and a localizing lateral x-ray obtained and confirmed needle to be at the L4 pedicle level. A Vertical Midline Skin Incision Was Marked and Infiltrated with 10 ML of Local Anesthetic. Skin incision was made with a 10 blade knife. Dissection was carried down through subcutaneous tissue with the Bovie to the lumbodorsal fascia. The fascia was incised and a subperiosteal dissection of the lumbar paravertebral muscles was performed exposing the underlying spinous processes lamina and facets from L3 to S1 bilaterally and self-retaining retractors were placed beneath the muscle. Facet joints at L3 4, L4 5, and L5-S1 bilaterally were noted to be markedly hypertrophic with multiple dorsally projecting synovial cysts that were diffuse about each of the joints. A Stanley 4 elevator was placed under the presumed L5 lamina and a probe at the L4 pedicle and an intraoperative lateral lumbar x-rays obtained to confirm the correct level. With the correct level verified, we then proceeded to expose the transverse processes from L3 to L5 as well as the sacral alar bilaterally and they were decorticated with a high-speed drill. We then focused our attention to the decompression. A complete laminectomy from L3 to S1 was completed using a combination of the bone scalpel, small straight and angled curettes and Kerrison rongeurs. Thickened ligamentum flavum was gently elevated and resected from L3 to S1 allowing excellent decompression of the thecal sac. Bilateral pars osteotomies were then performed at L3, L4, and L5 using combination the bone scalpel and a Kerrison rongeurs and total facetectomies were completed bilaterally at all levels. All bone was saved and passed to the back table for subsequent arthrodesis. At L3 4, a small medial projecting synovial cyst on the right was resected. At L4 5, a dorsal and left sided synovial cyst was high be adhered to the dura. This was carefully dissected and resected and specimen passed off to the back table. Pedicles were skeletonized at L3, L4, L5, and S1 bilaterally and the exiting and traversing roots were widely decompressed on both sides. We then focused our attention to the discectomies. Using a far lateral approach , complete discectomies were completed at L3/4 and L4 5 and L5-S1. The dural sac was gently mobilized to the midline, the underlying disc annulus was coagulated with a bipolar and incised in a rectangular fashion with an 11 blade knife and discectomies were completed with small straight and angled curettes pituitary rongeurs disc space zarina and rasps until all the cartilaginous endplates were removed at all 4 levels. We next focused our attention to the interbody arthrodesis. Using a stab incision overlying the right iliac crest, 20 mL of bone marrow aspirate was collected via a Jamshidi needle and added to the autograft.After appropriate trials, a 10 x 26mm Synthes parallel 4 web cage was selected. It was filled with morcellated autograft. Morcellated autograft was packed into the anterior aspect of the L3/4 disc space. We then tamped the cage into the disc space under direct visualization and countersunk the cage by approximately 2-3 mm and its final position was noted to be excellent. At L4 5, a second 10 x 26mm Synthes cage was also selected after appropriate trials and packed with morcellated autograft. With the dural elements protected, morcellated autograft was packed into the anterior disc space and then the L4 5 cage was then gently tamped into the interspace under direct visualization and countersunk by several millimeters and its position also confirmed and noted to be excellent. At L5-S1 , a 12 x 26 mm cage was selected and packed with morcellated autograft. autograft were carefully packed into the anterior aspect of the disc space followed by the cage was gently tamped into the interspace and countersunk by 2 or 3 mm and its final position confirmed and noted to be excellent. With all 3 cages in position, we then proceeded to the posterior lateral arthrodesis. The O arm reference arc was then fixed to the right iliac crest and the O arm was brought into play. AP and lateral x-rays Were obtained with the O arm followed by a spin. Reconstructions were completed and confirmed. We then used live navigation to place all of the posterior lateral hardware. Prior to placing the pedicle screw instrumentation, bone graft were applied to the transverse processes from L3 to to the sacral alar bilaterally and covered with 10 mL of Master graft on each side. Entry points for Synthes Expedia pedicle screws were selected using the O arm at the junction of the pars interarticularis transverse process and inferomedial aspect of the rostral facet. All screws were placed by piercing the bone with the drill, traversing the pedicle with a gearshift under the hole with a ball- tipped probe, tapping, we sounded with a ball-tipped and screw placed. We began At L3, 6.5 x 50 mm screws were placed bilaterally, at L4, 6.5 x 45 mm screws placed on the right only, at L5, 6.5 x 40 mm screw placed bilaterally and at S1, 6.5 x 40 mm screws placed bilaterally. With all screws were in position, they were stimulated with thresholds greater than 30 mA at all locations. With all the screws in position, we then obtained a second spin of the O arm and completed the reconstructions to ensure good hardware positioning. All cages were in excellent position. All screws were well seated in the pedicles. With all screws in position, we then top loaded lordotic titanium rods and locking caps were placed. Screws were then finally tightened using antitorque device. Was copiously irrigated with bacitracin and sterile saline irrigation. Epidural bleeding was controlled using FloSeal, Surgifoam and cottonoid patties and points of muscle bleeding were controlled with the bipolar electrocautery. A medium IRVIN drain was placed into the wound and secured to the skin with a 2-0 nylon suture. 1 g of vancomycin powder was gently used to cover the cut muscle and soft tissue surfaces in the wound and we then began closure. 10 mL of long-acting local anesthetic was infiltrated into the muscle. Deep muscle was reapproximated with interrupted 0 Vicryl suture. Subcutaneous tissue was closed in layers with interrupted oh and 2-0 Vicryl suture. The skin was closed with kayleigh. The wounds were cleaned and dried. Bacitracin and sterile occlusive dressings were placed. The reference arc was removed from the right iliac crest. That wound was irrigated, closed in layers in the subcutaneous tissue with Vicryl suture and kayleigh in the skin. It was cleaned and dried and a sterile occlusive dressing was placed. At the completion of the case, all sponge needle and injuring counts were correct at the completion of the procedure 3. Neurophysiologic monitoring was stable throughout the case. Patient was returned to the supine position, awakened extubated and taken to PACU in stable condition. Findings: Multiple bilateral L3 4, L4 5, and L5-S1 synovial cysts with neural impingement, advanced multilevel facet arthrosis Discharge Disposition: PACU
--- NOTE | 2017-04-20 17:09 | RADIOLOGY REPORT ---
EXAMINATION: XR LUMBAR SPINE, 2 IMAGES CLINICAL INFORMATION: L3-L4 and L4-L5 TLIF COMPARISON: CT scan of the lumbar spine dated 04/17/2017. TECHNIQUE: Lateral views of the lumbar spine were performed portably in the operating room, labeled #1 and #2. FINDINGS: Film 1 shows a metallic marker in between the posterior spinous process of the L3 and L4 vertebral bodies. Film 2 shows a metallic marker overlying the posterior pedicle of the L4 vertebral body and a second metallic marker overlying the posterior pedicle of the L5 vertebral body. Retractors are also noted. Grade 1 anterolistheses of L3-L4 on 5 is seen and multilevel moderate facet arthropathy in the mid and lower lumbar spine is noted. Atherosclerotic calcifications of the abdominal aorta are seen. IMPRESSION: Spinal level localization during TLIF as discussed above.
--- NOTE | 2017-04-20 18:35 | Operative Report ---
Operative/Inv Procedure Report Surgery Date: 04/20/17 Name of Procedure: L3 4 laminectomy for resection of synovial cyst, L4 5 laminectomy for resection of synovial cyst, L5-S1 laminectomy for resection of synovial cyst. Bilateral L3 4 osteotomy. Bilateral L4 5 osteotomy. Bilateral L5-S1 osteotomy. L 34 TLIF. L4 5 TLIF. L5-S1 TLIF. Insertion of L3 4 10 x 26 mm interbody cage titanium. Insertion of L4 5 10 x 26 mm interbody cage titanium. Insertion of L5-S1 12 x 26 mm interbody cage titanium. L3-L4 L5-S1 posterior lateral arthrodesis utilizing autologous bone graft iliac crest graft aspirate and a master graft. L3-L4 L5-S1 posterior lateral segmental instrumentation utilizing to PACU instrumentation titanium stereotactic. Pre-Operative Diagnosis: L3 through S1 severe arthropathy L3 4 synovial cyst L4 5 synovial cyst L5-S1 synovial cyst. Spondylolisthesis, stenosis. Post-Operative Diagnosis: Same Estimated Blood Loss: 800cc Surgeon/Cap Lining Machine Operator: MARIELA HERNANDEZ MD, LENA TONY,YANCY Pink Anesthesia: general endotracheal tube Operative/Procedure Note Note: Patient was brought to the operating room and after undergoing endotracheal intubation Yost catheterization Venodyne's were placed over both lower extremities. The patient was placed prone on a Ede frame the back was kept flat all bony prominences well-padded. X-ray was used for localization. Skin was washed with alcohol and Betadine reprepped again with a ChloraPrep solution and draped in usual sterile fashion. An incision was made between the L3 and the S1 vertebral developed the underlying subcutaneous teeniest tissues. Paraspinal muscles were mobilized out laterally to the level of the transverse processes exposing the L3 L4 L5 transverse processes and the ala of the sacrum. X-ray was used for confirmation. The facet joints were highly diseased with a synovial cysts present at all levels. Using a MISONIX bone scalpel the lamina were completely removed at L5 L4 L3 and inferior L3 bilaterally, the synovial cystS away from the dura at each level separate synovial cysts were found at each level and were away carefully without CSF leak. Furthermore complete osteotomies were performed at L3 4 L4 5 and L5-S1 completing the complete foraminotomies bilaterally. At L3 4 the disc space was entered to the right of midline with an 11 blade, and was removed with a combination of straight and curved rongeurs and straight and curved curettes. The endplate scrapers were now removed and the cartilaginous endplates removed and the bony endplates were partially decorticated. Through a separate skin and fascial incision and iliac crest graft aspirate was now obtained and mixed with the autologous bone graft. The bone that was removed from the patient's lamina was morcellized and use in the arthrodesis. Morselized bone was placed into the decorticated surfaces between the L3 and L4 disc spaces. A cage at titanium by [employer], was centrally filled with autologous bone graft and tapped into the interspace at L3 4. At L4 5 similarly the disc space was entered with 11 blade and removed with a combination of straight and curved rongeurs and straight and curved curettes cartilaginous endplates removed and the bony operative partially decorticated. Was lysed bone was placed into the interspace and then a 10 x 26 mm titanium cage was centrally filled with autologous bone graft and tapped into the interspace. L5-S1 via left-sided approach to the space was entered with 11 blade and removed with a combination of shaver and curved rongeurs and curettes. The bony endplates were partially decorticated. Autologous bone graft was placed into the disc space. A 12 x 20 6. titanium cage was then tapped across the midline at the L5-S1 level. Copious amounts of bacitracin irrigation were used. The certified coordinates were obtained now. Bone graft morcellized and was morcellized and placed over the corticated surfaces posterolaterally by decorticating the transverse processes at L3 L4 L5 and the ala of S1. Under stereotactic guidance the pedicle screws by [employer], were now placed at L3 unilaterally at L4 bilaterally L5 bilaterally of S1. 6.5 mm diameter screws were placed at L3 by 50mm in length, at L4 and L5 6.5 mm x 45 mm, and at S1, 6.5 mm x 40 mm. Screws were stimulated and found to stimulate above 25 mA. 2 rods were now connected to the 2 screws and secured under compression. Copious amounts of bacitracin irrigation were used. Vancomycin powder was placed into the wound. And the drain was now placed and removed through separate stab incision superiorly. The paraspinal muscles and fascia were reapproximated using interrupted 0 Vicryls, subcutaneous teeniest tissues with inverted 20 Vicryls and then kayleigh for the skin.
[2017-04-20 21:00] VITALS: BP 110/80
[2017-04-20 21:01] VITALS: BP 110/80
--- NOTE | 2017-04-20 21:40 | NUR ---
PT ADMITTED FROM PACU AT 2100. ALERT AND ORIENTED X 3, [address] IV FLUIDS RUNNING. DRESSING TO BACK CDI, IRVIN DRAIN PUTTING OUT BLOODY DRAINAGE. ROR ENGINEER IN USE. + CMS, + PP. CIWA SCALE MONITORING. WILL CONTINUE TO MONITOR.
[2017-04-20 22:00] VITALS: BP 134/80
--- NOTE | 2017-04-20 22:12 | PN- Neurosurgical ---
Subjective Subjective: POST-OP NOTE: Reports expected lumbar incisional discomfort. Pain currently controlled with labor relations representative. Tolerating clears. No nausea. "I'm hungry". Not yet out of bed. Denies dizziness. No shortness of breath. No chest pains. Objective Vital Signs and I&Os Vital Signs Date Time Temp Pulse Resp B/P B/P Pulse O2 O2 Flow FiO2 Mean Ox Delivery Rate 04/20 2146 98.4 86 20 110/80 04/20 2101 98.3 86 20 110/80 04/20 2101 96 Nasal 2.0L Cannula 04/20 2100 98.4 86 20 110/80 04/20 2100 98.4 86 96 Nasal 2.0L Cannula Intake & Output 04/20 0804/20 0000 04/19 0804/19 0000 Intake Total Output Total Balance Patient 200 lb Weight Physical Exam: General - alert & oriented. sleepy. comfortable. Lungs - clear bilaterally. no w/r/r. Cardiac - s1s2. reg. Abdomen - soft. nontender. - whitley draining clear, yellow urine (1500 mls from OR & pacu combined) Lumbar dressing intact. IRVIN drain with bloody drainage (250 mls emptied in pacu) Extremities - warm bilaterally. no c/c/e. calves soft and nontender b/l. athrombics active b/l. sensation grossly intact / equal. slow with df/pf - difficult to assess at this moment strength. Current Medications: Current Medications Sig/Marj Start time Last Medication Dose Route Stop Time Status Admin Acetaminophen 650 MG Q4P PRN 04/20 2045 AC PO Acetaminophen 1,000 MG .STK-MED ONE 04/20 1155 DC IV 04/20 115 Bisacodyl 10 MG DAILY NEEDED PRN 04/20 2045 AC CO Cefazolin Sodium 2 GM Q8H 04/20 2200 AC 04/20 N/A 1 UNIT IV 04/23 1429 2145 Diazepam 5 MG Q8P PRN 04/20 2045 AC PO Docusate Sodium 100 MG TID 04/20 2200 AC 04/20 PO 2144 Famotidine 20 MG BID 04/20 2200 AC 04/20 PO 2145 Fentanyl Citrate 500 MCG .STK-MED ONE 04/20 1155 DC IM 04/20 1156 Gabapentin 300 MG QPM 04/20 2200 AC 04/20 PO 2145 Heparin Sodium 5,000 UNIT Q8 04/21 06 AC (Porcine) SC Hydromorphone HCl 50 MG Q24H PRN 04/20 190 AC Sodium Chloride 45 ML IV Hydromorphone HCl 2 MG .STK-MED ONE 04/20 1154 DC IM 04/20 1155 Ketorolac 15 MG Q6P PRN 04/20 2045 AC Tromethamine IV 04/24 2044 Lorazepam 0 Q1P PRN 04/20 1745 AC IV Midazolam HCl 2 MG .STK-MED ONE 04/20 1155 DC IM 04/20 1156 Nebivolol 5 MG QPM 04/20 2200 AC 04/20 PO 214 Ondansetron HCl 4 MG Q6P PRN 04/20 2045 AC IV Oxycodone/ 2 TAB Q4P PRN 04/20 204 AC Acetaminophen PO Remifentanil 3 MG .STK-MED ONE 04/20 1156 DC IV 04/20 1157 Senna 374 MG AT BEDTIME NEED.. 04/20 2045 AC PO Sodium Chloride 1,000 ML .[id number] 04/20 190 AC 04/20 IV 04/211 Trimethobenzamide HCl 200 MG Q6P PRN 04/20 204 AC IM Results Last 48 Hours of Labs: Laboratory Tests 04/20 04/20 04/20 04/20 1603 1602 1600 1013 Blood Gas pH (7.35 - 7.45 PH) 7.43 Pending pCO2 (35 - 45 TORR) 34 L Pending pO2 (80 - 100 TORR) 437 H Pending HCO3 (21 - 28 MEQ/L) 22 Pending ABG O2 Sat (Measured) (>96.0 %) 99.0 Pending P-50 (Temp Corrected) Pending Carboxyhemoglobin (1.5 - 5.0 %) 1.4 L Pending O2 Concentration % 96% Pending Temperature Pending Respiration Rate (BPM) 10 O2 Delivery Method AC/VENT Pending Vent Mode AC Expiratory Pressure (CMH2O/P) 5 Tidal Volume (CC) 600 Chemistry Lactic Acid (0.7 - 2.1 mmol/L) 1.5 Miscellaneous Phlebotomy Draw Site RENEE Pending Toxicology Serum Alcohol (<10 MG/DL) < 10.0 Assessment/Plan Assessment/Plan This 57 male with pmh significant for htn, neuropathy with recently diagnosed lumbar spinal cyst and associated spinal stenosis, high functioning every day alcoholic, with moderate foot drop, who is POD#0 s/p L3-4, L4-5, L5-S1 TLIF advance diet as tolerated labor relations representative - dilaudid prn pain control monitor drain output ancef until drain removed hep sc - dvt ppx d/c whitley in am oob with brace home meds ordered ciwa / ativan for signs of alcohol withdrawal will d/w Core Measures/Miscellaneous Venous Thromboembolism VTE Risk Factors: Age > 40, Surgery VTE Contraindications: No Contraindications VTE Diagnosis: No Beta Vinny Is Beta Vinny a Home Med? Yes If Yes, Was This Ordered Today? Yes Antibiotics Is Patient on Antibiotics? Yes If Yes: prophylaxis
[2017-04-20 22:36] VITALS: BP 134/90
[2017-04-20 23:00] VITALS: BP 134/90
[2017-04-21] VITALS (12 sets, daily range): BP systolic 108–134; BP diastolic 68–90
--- NOTE | 2017-04-21 08:02 | PN- Neurosurgical ---
Subjective Subjective: Pt reports he is doing well. No problems over night. Pain controlled with CURRICULUM ASSISTANT PRINCIPAL. Objective Vital Signs and I&Os Vital Signs Date Time Temp Pulse Resp B/P B/P Pulse O2 O2 Flow FiO2 Mean Ox Delivery Rate 04/21 0700 98.1 74 20 110/80 04/21 0700 98.1 74 20 110/80 92 Nasal 2.0L Cannula 04/21 0600 97.7 81 20 120/70 04/21 0500 97.7 81 20 120/70 04/21 0500 97.7 81 20 120/70 95 Nasal 2.0L Cannula 04/21 0400 98.1 75 18 122/68 04/21 0308 98.1 75 18 122/68 96 Nasal Cannula 04/21 0300 98.1 75 18 122/68 04/21 0300 98.1 75 18 122/68 04/21 0200 98.4 67 18 108/70 04/21 0104 98.4 67 18 108/70 96 Nasal Cannula 04/21 0100 98.4 67 18 108/70 04/21 0000 Nasal 2.0L Cannula 04/21 0000 98.0 84 20 134/90 04/20 2300 98.0 84 20 134/90 04/20 2236 98.1 84 20 134/90 96 Nasal 2.0L Cannula 04/20 2200 98.0 84 20 134/80 04/20 2146 98.4 86 20 110/80 04/20 2101 98.3 86 20 110/80 04/20 2101 96 Nasal 2.0L Cannula 04/20 2100 98.4 86 20 110/80 04/20 2100 98.4 86 20 110/80 96 Nasal 2.0L Cannula Intake & Output 04/21 0800 04/21 0000 04/20 1600 04/20 0800 04/20 0000 04/19 1600 Intake Total 460 Output Total 1610 270 Balance -1610 190 Intake, IV 340 Intake, Oral 120 Output, 160 120 Drainage Output, Urine 1450 150 Patient 90.718 kg 90.718 kg Weight Physical Exam: AF, VSS renay po last night and this am awake and alert motor improved bilat LE with marked improvement in left foot drop c/w preop, intact sensation whitley in place incision is c,d,i, flat IRVIN with 160 cc over night serosanguinous no calf swelling or edema Current Medications: Current Medications Sig/Marj Start time Last Medication Dose Route Stop Time Status Admin Acetaminophen 650 MG Q4P PRN 04/20 2045 AC PO Acetaminophen 1,000 MG .STK-MED ONE 04/20 1155 DC IV 04/20 1156 Bisacodyl 10 MG DAILY NEEDED PRN 04/20 2045 AC ME Cefazolin Sodium 2 GM Q8H 04/20 2200 AC 04/21 N/A 1 UNIT IV 04/23 1429 0517 Diazepam 5 MG Q8P PRN 04/20 2045 AC PO Docusate Sodium 100 MG TID 04/20 2200 AC 04/20 PO 214 Famotidine 20 MG BID 04/20 2200 AC 04/20 PO 214 Fentanyl Citrate 500 MCG .STK-MED ONE 04/20 1155 DC IM 04/20 1156 Gabapentin 300 MG QPM 04/20 2200 AC 04/20 PO 214 Heparin Sodium 5,000 UNIT Q8 04/21 0600 AC 04/21 (Porcine) SC 0517 Hydromorphone HCl 2 MG .STK-MED ONE 04/20 1949 DC IM 04/20 1950 Hydromorphone HCl 50 MG Q24H PRN 04/20 1900 AC Sodium Chloride 45 ML IV Hydromorphone HCl 2 MG .STK-MED ONE 04/20 1854 DC IM 04/20 1855 Hydromorphone HCl 2 MG .STK-MED ONE 04/20 1154 DC IM 04/20 1155 Ketorolac 15 MG Q6P PRN 04/20 2045 AC Tromethamine IV 04/24 204 Lorazepam 0 Q1P PRN 04/20 1745 AC 04/21 IV 0309 Meperidine HCl 50 MG .STK-MED ONE 04/20 1932 DC IM 04/20 193 Midazolam HCl 2 MG .STK-MED ONE 04/20 1155 DC IM 04/20 1156 Nebivolol 5 MG QPM 04/20 2200 AC 04/20 PO 214 Ondansetron HCl 4 MG Q6P PRN 04/20 204 AC IV Oxycodone/ 2 TAB Q4P PRN 04/20 204 AC Acetaminophen PO Remifentanil 3 MG .STK-MED ONE 04/20 1156 DC IV 04/20 1157 Senna 374 MG AT BEDTIME NEED.. 04/20 2045 AC PO Sodium Chloride 1,000 ML .[id number] 04/20 1900 AC 04/20 IV 04/21 Trimethobenzamide HCl 200 MG Q6P PRN 04/20 2045 AC IM Results Last 48 Hours of Labs: Laboratory Tests 04/20 04/20 04/20 04/20 1603 1602 1600 1013 Blood Gas pH (7.35 - 7.45 PH) 7.43 Pending pCO2 (35 - 45 TORR) 34 L Pending pO2 (80 - 100 TORR) 437 H Pending HCO3 (21 - 28 MEQ/L) 22 Pending ABG O2 Sat (Measured) (>96.0 %) 99.0 Pending P-50 (Temp Corrected) Pending Carboxyhemoglobin (1.5 - 5.0 %) 1.4 L Pending O2 Concentration % 96% Pending Temperature Pending Respiration Rate (BPM) 10 O2 Delivery Method AC/VENT Pending Vent Mode AC Expiratory Pressure (CMH2O/P) 5 Tidal Volume (CC) 600 Chemistry Lactic Acid (0.7 - 2.1 mmol/L) 1.5 Miscellaneous Phlebotomy Draw Site RENEE Pending Toxicology Serum Alcohol (<10 MG/DL) < 10.0 Assessment/Plan Assessment/Plan Pt POD1 s/p L3-S1 decompressiona and fusion and doing well with improved neuro exam in LE. Plan: -OOB with brace, PT -reg diet -cont IRVIN, abx until less than 50cc per shift -IS use 10X per hr -DVT prophylaxis -toradol atc, oral dilaudid prn -dc CURRICULUM ASSISTANT PRINCIPAL -dc whitley -PT consult Core Measures/Miscellaneous Venous Thromboembolism VTE Risk Factors: Age > 40, Surgery VTE Contraindications: No Contraindications VTE Diagnosis: No Beta Vinny Is Beta Vinny a Home Med? Yes If Yes, Was This Ordered Today? Yes Antibiotics Is Patient on Antibiotics? Yes If Yes: prophylaxis Attending MD Review Statement Attending Statement Attending MD Statement: examined this patient, discuss w/resident/PA/FIRER RETORT, discussed w/nursing
--- NOTE | 2017-04-21 11:00 | RADIOLOGY REPORT ---
EXAMINATION: XR LUMBOSACRAL SPINE/INTRAOPERATIVE FLUOROSCOPY CLINICAL INFORMATION: L3-L4 and L4-L5 TLIF COMPARISON: Lumbar spine films from 04/20/2017. CT scan of the lumbar spine dated 04/17/2017. TECHNIQUE/FINDINGS: Fluoroscopic equipment was dedicated to the operating room. 2 sets of frontal and lateral views of the lumbar spine were obtained. 2 O-arm spins were obtained. Images demonstrate posterior spinal decompression and progressive placement of transpedicular screws at the L3-L4, L4-L5 and L5-S1 levels with intervening intervertebral disc spacers. Bone graft material has been placed at the facet joints bilaterally. Grade 1 anterolistheses of L4 on L5 is seen as noted on the prior CT scan as well. Soft tissue changes consistent with open surgery are noted. IMPRESSION: Administrative dictation for intraoperative fluoroscopy and image archiving in PACS. Please refer to operative notes.
[2017-04-21 11:21] LABS: ABSOLUTE BASOPHIL COUNT 0 /CUMM (0.0-0.2); ABSOLUTE EOSINOPHIL COUNT 0 /CUMM (0.0-0.7); ABSOLUTE GRANULOCYTE CT 10.3 /CUMM (1.4-6.5); ABSOLUTE LYMPH COUNT 1.4 /CUMM (1.2-3.4); ABSOLUTE MONOCYTE COUNT 0.5 /CUMM (0.10-0.60); BASOPHIL % 0.3 % (0.0-2.0); EOSINOPHIL % 0.2 % (0-5); HEMATOCRIT 35.4 % (42-52); MEAN CORPUSCULAR HGB 33.9 PG (27.0-31.0); MEAN CORPUSCULAR HGB CONC 33.5 G/DL (33.0-37.0); MEAN PLATELET VOLUME 8.4 FL (7.4-10.4); PLATELET COUNT 192 /CUMM (130-400); RBC DISTRIBUTION WIDTH 13.1 % (11.5-14.5); RED BLOOD CELL CT 3.51 /CUMM (4.70-6.10)
[2017-04-21 11:37] LABS: WHITE BLOOD CELL COUNT 12.3 /CUMM (4.8-10.8)
[2017-04-21 11:38] LABS: GRANULOCYTE % 84.3 % (42.2-75.2)
--- NOTE | 2017-04-21 20:09 | NUR ---
SHIFT NOTE: PT A/O X 3, ANXIOUS AT TIMES- SEE CIWA SCORING. PT STATES "I FEEL NERVOUS SOMETIMES I GUESS". ON RA, LUNGS CLEAR. +CMS. DRESSING TO BACK INTACT, OLD DRAINAGE MARKED ON DSG, NO NEW DRAINAGE PRESENT. JPD EMPTIED FOR 60 ML SS DRAINAGE. AMBULATED IN ROOM WITH THIS NURSE AND RW. URINATED IN URINAL TOTAL OF 250 SO FAR, DARK YELLOW URINE- PO FLUIDS ENCOURAGED. TOLERATING FOOD AND PO FLUIDS WELL- NO NAUSEA/VOMITING. BACK BRACE USED WITH AMBULATION PER ORDER. SAFETY PRECAUTIONS MAINTAINED.
--- NOTE | 2017-04-21 20:36 | Patient Discharge Instructions ---
Discharge Instructions General Discharge Information You were seen/treated for: Synovial cyst You had these procedures: TLIF L4-5 Watch for these problems: Fever > 101, redness, drainage, weakness, chest pain, shortness of breath. Call Surgeon to remove: Luis Do not soak the wound: Yes No bath, but you may shower: Yes Other wound care: Keep wound clean and dry. You may shower as desired with occlusive dressing over wound. Dry dressing change once daily. Diet Continue normal diet: Yes Activity Full Activity/No Limits: No Activity Self Limited: Yes Pounds, do NOT lift more than: 10 Activity Limited to: Weight bear as tolerated Other activity limits: Avoid strenuous activity or heavy lifting, pushing, or pulling. Avoid twisting or bending. No driving while using narcotics. Acute Coronary Syndrome Inclusion Criteria At DC or during hospital stay patient has or had the following: ACS DIAGNOSIS No Discharge Core Measures Meds if any: Prescribed or Continued at Discharge Meds if any: NOT Prescribed or Continued at Discharge Congestive Heart Failure Inclusion Criteria At DC or during hospital stay patient has or had the following: CHF DIAGNOSIS No Discharge Core Measures Meds if any: Prescribed or Continued at Discharge Meds if any: NOT Prescribed or Continued at Discharge Cerebrovascular accident Inclusion Criteria At DC or during hospital stay patient has or had the following: CVA/TIA Diagnosis No Discharge Core Measures Meds if any: Prescribed or Continued at Discharge Meds if any: NOT Prescribed or Continued at Discharge Venous thromboembolism Inclusion Criteria VTE Diagnosis No VTE Type NONE VTE Confirmed by (Test) NONE Discharge Core Measures - Per Current guidelines, there needs to be overlap - treatment for the first 5 days of Warfarin therapy. - If discharged on Warfarin prior to 5 days of - overlap therapy, the patient will need to be - assessed for post discharge needs including - *Post discharge parental anticoagulation - *Warfarin and/or parental anticoagulation education - *Follow up date to check INR post discharge At least 5 days overlap therapy as Inpatient No Meds if any: Prescribed or Continued at Discharge Note: Overlap Therapy is Warfarin and Anticoagulant Meds if any: NOT Prescribed or Continued at Discharge
--- NOTE | 2017-04-21 20:44 | Surgical Discharge Summary ---
Visit Information Visit Dates Admission Date: 04/20/17 Discharge Date: 04/23/17 History of Present Illness Chief Complaint: chronic back pain and Synovial cyst Medical History Neurological: NONE EENT: NONE Cardiovascular: hypertension Respiratory: NONE Gastrointestinal: NONE Hepatic: NONE Renal: NONE Musculoskeletal: SPINAL STENOSIS Psychiatric: NONE Endocrine: NONE Blood Disorders: NONE Cancer(s): NONE Other Medical Hx: Psoriasis, alcoholism, hypertension Isolation History: Standard Surgical History Pertinent Surgical History: knee replacement (RIGHT), spinal fusion Psychosocial History What is Your Primary Language? [place] Islander Tobacco History: Current smoker, 1 pack per day ETOH Use: alcoholic Review of Systems: see H&P Physical Exam: See H&P Hospital Course Course Attending Physician: LENA TONY,YANCY Pnik Primary Care Physician: VICKY TONY,ARABELLA Rodriguez Hospital Course: Patient is a 57-year-old male with a past medical history significant for hypertension, psoriasis, and alcoholism, who underwent TLIF of L3 through S1 with dissection of synovial cyst on 04/20/2017. Patient tolerated the procedure well and was transferred to the general medical floor in stable condition. He was known to have some bilateral lower extremity weakness, with a left foot drop preoperatively. He progressed well through his postoperative course and was eating and voiding well. IRVIN drain was eventually removed. He was evaluated by physical therapy and cleared for discharge to home/self-care. Complications: None Allergies: Coded Allergies: NO KNOWN ALLERGIES (04/02/16) Significant Procedures: TLIF L3 through S1, resection of synovial cyst by Dr. Correa and Dr. Snell. Disposition Summary Disposition Principal Diagnosis: Lumbar Synovial cyst, spondylolisthesis, spinal stenosis Additional Diagnosis: History of alcoholism Discharge Disposition: home or self care Discharge Instructions General Discharge Information Code Status: Full Code Patient's Diet: Regular Patient's Activity: Patient should avoid strenuous activity or heavy lifting, pushing, or pulling. He should avoid bending or twisting. No driving while using narcotics. Follow-Up Instructions/Appts: Patient should keep wound clean and dry. He may shower as desired with occlusive dressing over wound. Dry dressing change once daily. Follow-up with Dr. Correa in 2 weeks for staple removal. Please report any of the following symptoms to M.DDeshaun: Fever greater than 101, redness or drainage from the incision site, chest pain, shortness of breath, progressively worsening weakness. Medications at Discharge Discharge Medications: Stop taking the following medications: Hydrocodone/Acetaminophen (Hydrocodon-Acetaminoph 7.5-325) 7.5 MG-325 MG TABLET ORAL EVERY 4 HOURS NEEDED as needed for PAIN Qty = 105 Continue taking these medications: Nebivolol HCl (Bystolic) 5 MG TABLET 1 Tablet ORAL Every night Qty = 90 Comments: Last Taken: 04/17/17 Time: 0930 PM Lorazepam (Ativan) 1 MG TABLET 1 Tablet ORAL THREE TIMES DAILY as needed for alcohol withdrawal symptoms Qty = 10 Instructions: ten...[id number] Gabapentin (Gabapentin) 300 MG CAPSULE 1 Capsule ORAL Every night Qty = 30 Comments: Last Taken: 04/17/17 Time: 930 PM Start taking the following new medications: Diazepam (Valium) 5 MG TABLET 1 Tablet ORAL THREE TIMES A DAY NEEDED as needed for SPASM Qty = 30 No Refills Oxycodone HCl/Acetaminophen (Percocet 5-325 MG Tablet) 5 MG-325 MG TABLET 1-2 Tablet ORAL EVERY 4-6 HOURS as needed for pain Qty = 40 No Refills Copies To: VICKY TONY,ARABELLA Rodriguez
[2017-04-22] VITALS: BP 120/74
[2017-04-22 07:02] VITALS: BP 110/60
--- NOTE | 2017-04-22 09:10 | PN- Neurosurgical ---
Subjective Subjective: Pt with incisional LBP but otherwise doing well. Feels improved strength and mobility in LE c/w preop. Objective Vital Signs and I&Os Vital Signs Date Time Temp Pulse Resp B/P B/P Pulse O2 O2 Flow FiO2 Mean Ox Delivery Rate 04/22 0702 98.2 73 20 110/60 92 Room Air 04/22 0000 98.2 80 20 120/74 04/21 2236 98.3 81 20 118/70 95 Room Air 04/21 1439 98.9 83 20 118/80 94 04/21 1411 Room Air Intake & Output 04/22 1600 04/22 0800 04/22 0000 04/21 1600 04/21 0800 04/21 0000 Intake Total 325 780 460 Output Total 380 657 062 8828 270 Balance -55 -560 265 -1610 190 Intake, IV 75 100 340 Intake, Oral 250 680 120 Number 0 Bowel Movements Output, 80 110 140 160 120 Drainage Output, Urine 300 975 928 7533 150 Patient 90.718 kg Weight Physical Exam: AF, VSS awake and alert incision is c,d,i flat IRVIN with 80cc out last shift serosanguinous dc motor nearly full bilat LE with resolved left footdrop, sensory intact ambulating with walker voiding on own renay po well no signs of withdrawal Current Medications: Current Medications Sig/Marj Start time Last Medication Dose Route Stop Time Status Admin Acetaminophen 650 MG Q4P PRN 04/20 2045 AC PO Bisacodyl 10 MG DAILY NEEDED PRN 04/20 2045 AC MT Cefazolin Sodium 2 GM Q8H 04/20 2200 AC 04/22 N/A 1 UNIT IV 04/23 1429 0537 Diazepam 5 MG Q8P PRN 04/20 2045 AC 04/21 PO 1604 Docusate Sodium 100 MG TID 04/20 2200 AC 04/21 PO 2022 Famotidine 20 MG BID 04/20 2200 AC 04/21 PO 2022 Gabapentin 300 MG QPM 04/20 2200 AC 04/21 PO 2022 Heparin Sodium 5,000 UNIT Q8 04/21 06 AC 04/22 (Porcine) SC 0536 Ketorolac 15 MG .STK-MED ONE 04/21 214 DC Tromethamine IM 04/21 214 Ketorolac 15 MG .STK-MED ONE 04/21 1555 DC Tromethamine IM 04/21 1556 Ketorolac 15 MG Q6P PRN 04/20 2045 AC 04/22 Tromethamine IV 04/24 2044 0346 Lorazepam 0 Q1P PRN 04/20 1745 AC 04/22 IV 0752 Nebivolol 5 MG QPM 04/20 220 AC 04/21 PO 2023 Ondansetron HCl 4 MG Q6P PRN 04/20 2045 AC IV Oxycodone/ 1 TAB Q4P PRN 04/21 1500 AC 04/21 Acetaminophen PO 173 Oxycodone/ 2 TAB Q4P PRN 04/20 2045 AC 04/22 Acetaminophen PO 0638 Senna 374 MG AT BEDTIME NEED.. 04/20 2045 AC PO Sodium Chloride 1,000 ML .[id number] 04/20 190 DC 04/20 IV 04/21 Trimethobenzamide HCl 200 MG Q6P PRN 04/20 2045 AC IM Results Last 48 Hours of Labs: Laboratory Tests 04/21 04/20 04/20 0855 1603 1602 Blood Gas pH (7.35 - 7.45 PH) 7.43 Pending pCO2 (35 - 45 TORR) 34 L Pending pO2 (80 - 100 TORR) 437 H Pending HCO3 (21 - 28 MEQ/L) 22 Pending ABG O2 Sat (Measured) (>96.0 %) 99.0 Pending P-50 (Temp Corrected) Pending Carboxyhemoglobin (1.5 - 5.0 %) 1.4 L Pending O2 Concentration % 96% Pending Temperature Pending Respiration Rate (BPM) 10 O2 Delivery Method AC/VENT Pending Vent Mode AC Expiratory Pressure (CMH2O/P) 5 Tidal Volume (CC) 600 Hematology CBC w Diff NO MAN DIFF REQ WBC (4.8 - 10.8 /CUMM) 12.3 H RBC (4.70 - 6.10 /CUMM) 3.51 L Hgb (14.0 - 18.0 G/DL) 11.9 L Hct (42 - 52 %) 35.4 L MCV (80.0 - 94.0 FL) 101.0 H MCH (27.0 - 31.0 PG) 33.9 H RDW (11.5 - 14.5 %) 13.1 Plt Count (130 - 400 /CUMM) 192 MPV (7.4 - 10.4 FL) 8.4 Gran % (42.2 - 75.2 %) 84.3 H Lymphocytes % (20.5 - 51.1 %) 11.0 L Monocytes % (1.7 - 9.3 %) 4.2 Eosinophils % (0 - 5 %) 0.2 Basophils % (0.0 - 2.0 %) 0.3 Absolute Granulocytes (1.4 - 6.5 /CUMM) 10.3 H Absolute Lymphocytes (1.2 - 3.4 /CUMM) 1.4 Absolute Monocytes (0.10 - 0.60 /CUMM) 0.5 Absolute Eosinophils (0.0 - 0.7 /CUMM) 0 Absolute Basophils (0.0 - 0.2 /CUMM) 0 PUBS MCHC (33.0 - 37.0 G/DL) 33.5 Miscellaneous Phlebotomy Draw Site RENEE Pending 04/20 04/20 1600 1013 Chemistry Lactic Acid (0.7 - 2.1 mmol/L) 1.5 Toxicology Serum Alcohol (<10 MG/DL) < 10.0 Assessment/Plan Assessment/Plan Pt POD2 s/p L3/4, L4/5, L5/S1 decompression and fusion and doing well. Neurologically much improved. Plan: -OOB with brace -switch to oral dilaudid prn, dc percocet -cont IRVIN, abx until less than 50cc per shift -possible home with services vs. STR when stable for dc -PT Core Measures/Miscellaneous Venous Thromboembolism VTE Risk Factors: Age > 40, Surgery VTE Contraindications: No Contraindications VTE Diagnosis: No Beta Vinny Is Beta Vinny a Home Med? Yes If Yes, Was This Ordered Today? Yes Antibiotics Is Patient on Antibiotics? Yes If Yes: prophylaxis Attending MD Review Statement Attending Statement Attending MD Statement: examined this patient, discussed w/nursing
[2017-04-22] MEDS ORDERED: VALIUM5 M2 PO (09:38)
[2017-04-22] MEDS ORDERED: DILAUDID2 M1 PO (09:38)
[2017-04-22] MEDS ORDERED: PERCOCET 5-3251 EACH PO (14:26)
[2017-04-22 14:47] VITALS: BP 118/78
[2017-04-22 22:46] VITALS: BP 128/88
[2017-04-23] VITALS: BP 128/88
[2017-04-23 02:00] VITALS: BP 128/88
[2017-04-23 02:55] VITALS: BP 128/88
[2017-04-23 04:00] VITALS: BP 128/88
[2017-04-23 06:00] VITALS: BP 128/88
[2017-04-23 06:28] VITALS: BP 130/80
[2017-04-23] MEDS ORDERED: OXYCODONE HCL5 M1 PO (08:23)
[2017-04-23] MEDS ORDERED: COLACE100 M1 PO (08:24)
--- NOTE | 2017-04-23 09:31 | PN- Neurosurgical ---
Subjective Subjective: Pt doing well. No complaints this am. Objective Vital Signs and I&Os Vital Signs Date Time Temp Pulse Resp B/P B/P Pulse O2 O2 Flow FiO2 Mean Ox Delivery Rate 04/23 0628 98.8 75 18 130/80 97 Room Air 04/23 0600 98.8 88 76 128/88 04/23 0400 98.8 76 18 128/88 04/23 0255 98.8 76 18 128/88 04/23 0200 98.8 76 18 128/88 04/23 0000 98.8 76 18 128/88 04/22 2246 98.8 76 18 128/88 95 Room Air 04/22 1447 99.2 77 18 118/78 94 Room Air Intake & Output 04/23 1600 04/23 0800 04/23 0000 04/22 1600 04/22 0800 04/22 0000 Intake Total 340 670 325 Output Total 1135 525 650 380 560 Balance -795 -525 20 -55 -560 Intake, IV 100 70 75 Intake, Oral 240 600 250 Number 0 Bowel Movements Output, 35 25 50 80 110 Drainage Output, Urine 1100 500 600 300 450 Physical Exam: Pt AF, VSS neuro intact bilat LE ambulating, voiding on own renay po well incision is c,d,i IRVIN out this am Current Medications: Current Medications Sig/Marj Start time Last Medication Dose Route Stop Time Status Admin Acetaminophen 650 MG Q4P PRN 04/22 945 AC PO Acetaminophen 650 MG Q4P PRN 04/20 2045 DC PO Bisacodyl 10 MG DAILY NEEDED PRN 04/20 2045 AC AR Cefazolin Sodium 2 GM Q8H 04/20 2200 DC 04/23 N/A 1 UNIT IV 04/23 1429 0534 Diazepam 5 MG Q8P PRN 04/20 2045 AC 04/23 PO 0044 Docusate Sodium 100 MG TID 04/20 2200 AC 04/22 PO 2015 Famotidine 20 MG BID 04/20 2200 AC 04/22 PO 2015 Gabapentin 300 MG QPM 04/20 2200 AC 04/22 PO 2015 Heparin Sodium 5,000 UNIT Q8 04/21 06 AC 04/23 (Porcine) SC 0534 Hydromorphone HCl 2 MG Q3P PRN 04/22 945 DC PO Hydromorphone HCl 4 MG Q3P PRN 04/22 945 DC 04/22 PO 1114 Ketorolac 15 MG .STK-MED ONE 04/22 2114 DC Tromethamine IM 04/22 2115 Ketorolac 15 MG .STK-MED ONE 04/22 1544 DC Tromethamine IM 04/22 1545 Ketorolac 15 MG Q6P PRN 04/20 2045 AC 04/23 Tromethamine IV 04/24 2044 0329 Lorazepam 1 MG Q2P PRN 04/22 0945 AC 04/23 PO 0754 Lorazepam 0 Q1P PRN 04/20 1745 DC 04/22 IV 0752 Nebivolol 5 MG QPM 04/20 2200 AC 04/22 PO 2015 Nicotine 21 MG DAILY 04/22 1244 AC 04/22 TOP 1409 Ondansetron HCl 4 MG Q6P PRN 04/20 204 AC IV Oxycodone HCl 5 MG Q4-6 PRN PRN 04/23 0830 AC PO Oxycodone HCl 10 MG Q4-6 PRN PRN 04/23 0830 AC PO Oxycodone HCl 15 MG Q4-6 PRN PRN 04/23 0830 AC PO Oxycodone/ 1 TAB Q4P PRN 04/22 1430 DC Acetaminophen PO Oxycodone/ 2 TAB Q4P PRN 04/22 1430 DC 04/23 Acetaminophen PO 0534 Oxycodone/ 1 TAB Q4P PRN 04/21 1500 DC 04/21 Acetaminophen PO 1731 Oxycodone/ 2 TAB Q4P PRN 04/20 2045 DC 04/22 Acetaminophen PO 0638 Senna 374 MG AT BEDTIME NEED.. 04/20 204 AC PO Trimethobenzamide HCl 200 MG Q6P PRN 04/20 204 AC IM Assessment/Plan Assessment/Plan Pt POD3 s/p L3/4-L5/S1 decompression and fusion and doing well. Cleared by PT for dc to home with services. Plan: -home with VNA -fu with me 2 weeks for wound check and kayleigh -dc instructions given -no driving, no lift more than 5lbs, no submerging incision -cover incision for showers Core Measures/Miscellaneous Venous Thromboembolism VTE Risk Factors: Age > 40, Surgery VTE Contraindications: No Contraindications VTE Diagnosis: No Beta Vinny Is Beta Vinny a Home Med? Yes If Yes, Was This Ordered Today? Yes Antibiotics Is Patient on Antibiotics? Yes If Yes: prophylaxis Attending Review Statement Attending Statement Attending MD Statement: examined this patient, discuss w/resident/PA/RAILROAD AUDITOR, discussed w/nursing
== END 2017-04-23 13:13 | disposition home health service (06) | DRG 460 ==
LOC: SDA 01:50 → ENRESERV 19:26 → ENTRNSPT 20:33 → 2NA 20:48 → CMPTRNSPT 21:02 → ENPENDDIS 04-23 09:38 → 2NA 04-23 13:13
PROVIDERS: Physician Assistant Surgical; ADMIT Neurological Surgery
PROC: 0SG30AJ Fusion of Lumbosacral Joint with Interbody Fusion Device, Posterior Approach, Anterior Column, Open Approach (ICD-10-PCS; principal; 2017-04-20)
PROC: 0ST40ZZ Resection of Lumbosacral Disc, Open Approach (ICD-10-PCS; principal; 2017-04-20)
PROC: 4A11X4G Monitoring of Peripheral Nervous Electrical Activity, Intraoperative, External Approach (ICD-10-PCS; principal; 2017-04-20)
PROC: 0ST20ZZ Resection of Lumbar Vertebral Disc, Open Approach (ICD-10-PCS; principal; 2017-04-20)
PROC: 0SG0071 Fusion of Lumbar Vertebral Joint with Autologous Tissue Substitute, Posterior Approach, Posterior Column, Open Approach (ICD-10-PCS; principal; 2017-04-20)
PROC: 0SG10AJ Fusion of 2 or more Lumbar Vertebral Joints with Interbody Fusion Device, Posterior Approach, Anterior Column, Open Approach (ICD-10-PCS; principal; 2017-04-20)
PROC: 0SG3071 Fusion of Lumbosacral Joint with Autologous Tissue Substitute, Posterior Approach, Posterior Column, Open Approach (ICD-10-PCS; principal; 2017-04-20)
PROC: 0QB20ZZ Excision of Right Pelvic Bone, Open Approach (ICD-10-PCS; principal; 2017-04-20)
DX: M48.06 Spinal stenosis, lumbar region (principal); I10 Essential (primary) hypertension; M48.07 Spinal stenosis, lumbosacral region; M47.896 Other spondylosis, lumbar region; M47.897 Other spondylosis, lumbosacral region; M43.16 Spondylolisthesis, lumbar region; M71.38 Other bursal cyst, other site; M21.372 Foot drop, left foot; M21.371 Foot drop, right foot; F17.210 Nicotine dependence, cigarettes, uncomplicated
CPT/HCPCS: 2NASP; 36415; 72020; 72100; 87086; 97116-GO; 97161-GP; C9290; G0480; J0131; J0690; J1170; J1644; J3250; J3370

== ENCOUNTER 2018-03-25 14:33 | Observation (INO) | payer OTHER ==
[~2018-03-25 14:33] MED LIST changes: +COLACE100 M1 PO; +DILAUDID2 M1 PO; +OXYCODONE HCL5 M1 PO; +PERCOCET 5-3251 EACH PO; +VALIUM5 M2 PO
--- NOTE | 2018-03-25 15:00 | ED PSYCHIATRIC COMPLAINT ---
See Addendum History of Present Illness General Chief Complaint: ETOH/Drug Related Complaint Stated Complaint: ETOH DETOX Source: patient, family Exam Limitations: intoxication Vital Signs & Intake/Output Vital Signs & Intake/Output Vital Signs Date Time Temp Pulse Resp B/P B/P Pulse O2 O2 Flow FiO2 Mean Ox Delivery Rate 03/26 0200 99.4 102 18 143/81 03/26 0155 99.4 102 18 143/81 98 Room Air 03/26 0000 99.6 117 20 131/85 03/25 2328 99.6 117 20 131/85 98 Room Air 03/25 2054 Room Air 03/258 98.1 110 18 138/92 95 Room Air 03/25 1819 97.7 94 18 101/65 96 BIPAP 03/25 1517 Room Air 03/25 1439 98.0 107 20 115/77 97 Room Air ED Intake and Output 03/26 0000 03/25 1200 Intake Total Output Total Balance Patient 160 lb Weight Allergies Coded Allergies: NO KNOWN ALLERGIES (04/02/16) Reconcile Medications Acetaminophen (Tylenol) (Unknown Strength) TABLET (Unknown Dose) PO PRN PAIN (Reported) Cholecalciferol (Vitamin D3) (Vitamin D) (Unknown Strength) TABLET (Unknown Dose) PO DAILY SUPPLEMENT (Reported) Cyanocobalamin (Vitamin B-12) (Unknown Strength) TABLET (Unknown Dose) PO DAILY SUPPLEMENT (Reported) Gabapentin 300 MG CAPSULE 1 CAP PO QHS UNKNOWN (Reported) Lisinopril 20 MG TABLET 1 TAB PO DAILY BP (Reported) Naproxen Sodium (Aleve) 220 MG CAPSULE 2 TAB PO DAILY PAIN/INFLAMMATION ( Reported) Triage Note: PER PT HERE FOR DETOX, RELATIVE VERY INVOLVED IN QUESTIONS PT DENIES DRUG USE BUT REPORTS DAILY 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 yes Onset: Gradual Duration: constant Timing: remote history Severity: severe Severity Numbers: 10 HPI: Patient is a 58-year-old man with a past medical history significant for alcohol abuse, history of hypertension, psoriasis with peripheral neuropathy in which patient was admitted approximate one year ago to [facility] for for spinal cyst surgery performed by DR. PAREDES and alcohol detox. Patient states that since he was discharged a year ago he's been drinking every day since patient currently lives the past 3 months with his father at which he presents emergency room and which they are requesting alcohol detox for worsening symptoms of alcohol dependency. No history of ALCOHOL withdrawal seizures. Denies any illicit drug use does smoke tobacco denies any suicide or homicidal ideation Denies any auditory or visual hallucinations denies any fever chills nausea vomiting abdominal pain. (Dani Bird) Past History Travel History Traveled to [place] past 21 day No Medical History Any Pertinent Medical History? see below for history Neurological: NONE EENT: NONE Cardiovascular: hypertension Respiratory: NONE Gastrointestinal: NONE Hepatic: NONE Renal: NONE Musculoskeletal: SPINAL STENOSIS Psychiatric: NONE Endocrine: NONE Blood Disorders: NONE Cancer(s): NONE Other Medical Hx: Psoriasis, alcoholism, hypertension Surgical History Surgical History: knee replacement (RIGHT), spinal fusion Psychosocial History What is your primary language Malay Tobacco Use: Current Daily Use Daily Tobacco Use Amount/Type: => 5 Cigarettes daily ETOH Use: heavy use Family History Hx Contributory? No (Dani Bird) Review of Systems Review of Systems Constitutional: Reports: no symptoms. EENTM: Reports: no symptoms. Respiratory: Reports: no symptoms. Cardiovascular: Reports: no symptoms. GI: Reports: no symptoms. Genitourinary: Reports: no symptoms. Musculoskeletal: Reports: no symptoms. Skin: Reports: no symptoms. Neurological/Psychological: Reports: see HPI. Hematologic/Endocrine: Reports: no symptoms. Immunologic/Allergic: Reports: no symptoms. All Other Systems: Reviewed and Negative (Dani Bird) Physical Exam Physical Exam General Appearance: no apparent distress, alert, comfortable Head: atraumatic Eyes: Bilateral: normal appearance, PERRL. Ears, Nose, Throat: hearing grossly normal Neck: normal inspection Respiratory: chest non-tender, no respiratory distress Cardiovascular: regular rate/rhythm Gastrointestinal: normal bowel sounds, soft, non-tender Neurological/Psychiatric: no motor/sensory deficits, calm Appearance/Memory/Insight: denies illness, disheveled Behavoir/Eye Contact/Speech: cooperative, normal speech, good eye contact Thoughts/Hallucinations: normal thought pattern, no apparent hallucination Skin: intact, normal color SAD PERSONS Done? patient not suicidal (Dani Bird) Progress Differential Diagnosis: drug intoxication, drug overdose, drug withdrawal, electrolyte abnormality, encephalitis, hypoglycemia, hypothyroidism, IC hem/mass /tumor, meningitis Plan of Care: Orders Procedure Date/time Status CASE MANAGEMENT CONSULT 03/26 0028 Active Regular Diet 03/25 D Active OXYGEN SETUP (GEN) 03/25 165 Active Saline Lock 03/[address] in observation 03/25 165 Active Patient Data 03/25 1657 Active Vital Signs 03/25 165 Active Activity/Ambulation 03/25 165 Active Code Status 03/25 1657 Active Intake & Output 03/25 1516 Active CIWA 03/25 1500 Active URINE DRUG SCREEN FOR ER ONLY 03/25 1500 Complete LIPASE 03/25 1500 Complete ETHANOL 03/25 1500 Complete COMPREHENSIVE METABOLIC PANEL 03/25 1500 Complete CBC WITHOUT DIFFERENTIAL 03/25 1500 Complete Laboratory Tests 03/25/18 1628: Urine Opiates Screen < 100, Methadone Screen < 40, Barbiturate Screen < 60, Ur Phencyclidine Scrn < 6.00, Amphetamines Screen 216, U Benzodiazepines Scrn < 85, Urine Cocaine Screen < 50, Urine Cannabis Screen < 5.00 03/25/18 1528: Anion Gap 14, Estimated GFR > 60, BUN/Creatinine Ratio 22.0, Glucose 101 H, Calcium 8.9, Total Bilirubin 0.3, AST 41, ALT 46, Alkaline Phosphatase 71, Total Protein 7.3, Albumin 4.5, Globulin 2.8, Albumin/Globulin Ratio 1.6, Lipase 325 H, CBC w Diff NO MAN DIFF REQ, RBC 3.86 L, MCV 100.3 H, MCH 35.0 H, MCHC 34.9 , RDW 13.5, MPV 6.3 L, Gran % 66.4, Lymphocytes % 24.0, Monocytes % 6.0, Eosinophils % 3.2, Basophils % 0.4, Absolute Granulocytes 4.5, Absolute Lymphocytes 1.6, Absolute Monocytes 0.4, Absolute Eosinophils 0.2, Absolute Basophils 0, Serum Alcohol 280.0 Patient's initial breathalyzer of alcohol shows 360 Patient is a husky patient Patient currently is resting comfortably and noted to be intoxicated Denies any illness Denies any SI HI INITIAL CIWA 5 0021- REPEAT CIWA 8 Patient will be hold over in the emergency room, continuous CIWA as needed Discussed handOFF WITH Dr. Gordon Hand-Off Endorsed To: Evan TONY,Kevin Rodriguez Endorsed Time: 010 Pending: other (CIWA EVAL) (Ousmane SANTORO,Dani) Departure Departure Disposition: STILL A PATIENT Condition: Stable Clinical Impression Primary Impression: Alcohol dependence Referrals: Eneida TONY,Brynn Rodriguez (PCP/Family) Departure Forms: Customer Survey General Discharge Information (Ousmane SANTORO,Dani) PA/WHIPPED TOPPING MIXER Co-Sign Statement Statement: ED Attending supervision documentation- [] I saw and evaluated the patient. I have also reviewed all the pertinent lab results and diagnostic results. I agree with the findings and the plan of care as documented in the PA's/WHIPPED TOPPING MIXER's documentation. [x] I have reviewed the ED Record and agree with the PA's/WHIPPED TOPPING MIXER's documentation. [] Additions or exceptions (if any) to the PAs/WHIPPED TOPPING MIXER's note and plan are summarized below: [] (Evan TONY,Kevin Rodriguez)
[2018-03-25 15:37] LABS: ABSOLUTE BASOPHIL COUNT 0 /CUMM (0.0-0.2); ABSOLUTE EOSINOPHIL COUNT 0.2 /CUMM (0.0-0.7); ABSOLUTE GRANULOCYTE CT 4.5 /CUMM (1.4-6.5); ABSOLUTE LYMPH COUNT 1.6 /CUMM (1.2-3.4); ABSOLUTE MONOCYTE COUNT 0.4 /CUMM (0.10-0.60); BASOPHIL % 0.4 % (0.0-2.0); EOSINOPHIL % 3.2 % (0-5); GRANULOCYTE % 66.4 % (42.2-75.2); HEMATOCRIT 38.7 % (42-52); MEAN CORPUSCULAR HGB CONC 34.9 G/DL (33.0-37.0); MEAN CORPUSCULAR VOLUME 100.3 FL (80.0-94.0); MEAN PLATELET VOLUME 6.3 FL (7.4-10.4); PLATELET COUNT 309 /CUMM (130-400); RBC DISTRIBUTION WIDTH 13.5 % (11.5-14.5); RED BLOOD CELL CT 3.86 /CUMM (4.70-6.10); WHITE BLOOD CELL COUNT 6.8 /CUMM (4.8-10.8)
[2018-03-25] MEDS ORDERED: LISINOPRIL20 M1 PO (17:39)
[2018-03-25] MEDS ORDERED: GABAPENTIN300 M2 PO (17:40)
[2018-03-25] MEDS ORDERED: VITAMIN D2000 UNI1 PO (17:40)
[2018-03-25] MEDS ORDERED: VITAMIN B-121000 MC3 PO (17:40)
[2018-03-25] MEDS ORDERED: TYLENOL325 M1 PO (17:41)
[2018-03-25] MEDS ORDERED: ADVIL200 M2 PO (17:41)
[2018-03-25] MEDS ORDERED: ALEVE220 M1 PO (17:41)
[2018-03-26] VITALS: BP 131/85
[2018-03-26 02:00] VITALS: BP 143/81
[2018-03-26] MEDS ORDERED: HYDROXYZINE HCL25 M2 PO (06:04)
[2018-03-26] MEDS ORDERED: IBUPROFEN800 M1 PO (06:04)
[2018-03-26] MEDS ORDERED: ATIVAN1 M1 PO (06:04)
[2018-03-26 06:10] VITALS: BP 152/96
== END 2018-03-26 06:31 ==
LOC: ERH 14:33 → ERHI 16:57
PROVIDERS: Physician Assistant
DX: F10.229 Alcohol dependence with intoxication, unspecified (principal); I10 Essential (primary) hypertension; L40.9 Psoriasis, unspecified; G62.9 Polyneuropathy, unspecified; Z96.651 Presence of right artificial knee joint; Z98.1 Arthrodesis status; F17.200 Nicotine dependence, unspecified, uncomplicated; Z79.899 Other long term (current) drug therapy
CPT/HCPCS: 6090; 80307; G0378; G0480